=== PATIENT | female | born 1945 | race Caucasian/White ===

== ENCOUNTER 2017-08-04 08:10 | Outpatient (CLI) | payer MEDICARE ==
--- NOTE | 2017-08-04 09:33 | PRG ---
DATE OF SERVICE: 08/04/2017 HISTORY: Ms. Lexi Montiel is a very pleasant 71-year-old accompanied by her sister who presents to [facility] for evaluation of a nonhealing surgical wound of the back in the midline subsequent to spinal fusion T10-L3 on 02/26/2017. The patient has been receiving dressing changes of Promogran and Aquacel AG 3 times per week after cleansing and irrigation with the assistance of Home Health. The patient has no complaints today. She denies any fever or chills. The patient has received IV antibiotics and p.o. antibiotics under the direction of Dr. Faustino Patel of Infectious Diseases. PHYSICAL EXAMINATION: VITAL SIGNS: Temperature 98.0, pulse 92, respirations 18, blood pressure 168/82. BACK: A wound of the back in the midline is present which measures approximately 1.2 x 0.3 cm. Und ermining at the 2 o'clock position is present and is approximately 1.5-1.7 cm in length. Granulatio n tissue is present within the wound margins. No purulent drainage is associated with the wound. N o erythema of the skin surrounding the wound is present. No maceration of the skin of the periwound is noted. ASSESSMENT AND PLAN: 1. Nonhealing surgical wound of the back in the midline subsequent to spinal fusion T10-L3 on 02/26. Dressing changes of Promogran followed by Aquacel AG will be continued 3 times per week afte r cleansing and irrigation with the assistance of Home Health. I will see Ms. Montiel again in 3 week s if the wound is still present at this time. 2. Hypertension. 3. Degenerative joint disease. 4. Paroxysmal atrial fibrillation. 5. Carpal tunnel syndrome. 6. Coronary artery disease. 7. Glaucoma. 8. Gastroesophageal reflux disease. 9. Osteoarthritis. 10. Hypothyroidism 11. Rheumatoid arthritis.
[2017-08-04] MEDS ORDERED: Sodium Chloride 0.9% 15 ML NEB ONE (11:11)
== END 2017-08-04 08:11 | disposition home or self-care (01) ==
LOC: WCC 08:10
PROVIDERS: ATTEND Family Medicine
DX: T81.89XD Other complications of procedures, not elsewhere classified, subsequent encounter (principal); I10 Essential (primary) hypertension; M19.90 Unspecified osteoarthritis, unspecified site; I48.0 Paroxysmal atrial fibrillation; G56.00 Carpal tunnel syndrome, unspecified upper limb; I25.10 Atherosclerotic heart disease of native coronary artery without angina pectoris; H40.9 Unspecified glaucoma; K21.9 Gastro-esophageal reflux disease without esophagitis; E03.9 Hypothyroidism, unspecified; M06.9 Rheumatoid arthritis, unspecified
CPT/HCPCS: 97602; A4218

== ENCOUNTER 2017-08-25 08:03 | Outpatient (CLI) | payer MEDICARE ==
--- NOTE | 2017-08-25 09:54 | PRG ---
DATE OF SERVICE: 08/25/2017 HISTORY: Ms. Lexi Montiel is a very pleasant 71-year-old accompanied by her who [facility] of a nonhealing surgical wound of the back in the midline subsequent to spinal fusion T10-L3 on 02/26/2017. The patient has been receiving dressing changes of Promogra n and Aquacel AG 3 times per week after cleansing and irrigation with the assistance of Home Health. The patient has no complaints today. She denies any fever or chills. The patient has received IV antibiotics and p.o. antibiotics under the direction of Dr. Faustino Patel of Infectious Diseases. PHYSICAL EXAMINATION: VITAL SIGNS: Pulse 101, respirations 18, blood pressure 140/85. BACK: A wound of the back in the midline is present which measures approximately 0.7 x 0.2 cm. Und ermining at the 2-3 o'clock position is present and is approximately 1.3 cm in length. Granulation tissue is present within the wound margins. No purulent drainage is associated with the wound. No erythema of the skin surrounding the wound is present. No maceration of the skin of the periwound i s noted. ASSESSMENT AND PLAN: 1. Nonhealing surgical wound of the back in the midline subsequent to spinal fusion T10-L3 on 02/26. Dressing changes of Promogran followed by Aquacel AG will be continued 3 times per week afte r cleansing and irrigation with the assistance of Home Health. I will see Ms. Montiel again in 3 week s if her wound is still present at this time. 2. Hypertension. 3. Degenerative joint disease. 4. Paroxysmal atrial fibrillation. 5. Carpal tunnel syndrome. 6. Coronary artery disease. 7. Glaucoma. 8. Gastroesophageal reflux disease. 9. Osteoarthritis. 10. Hypothyroidism 11. Rheumatoid arthritis.
== END 2017-08-25 08:04 | disposition home or self-care (01) ==
LOC: WCC 08:03
PROVIDERS: ATTEND Family Medicine
DX: T81.89XD Other complications of procedures, not elsewhere classified, subsequent encounter (principal); I10 Essential (primary) hypertension; M19.90 Unspecified osteoarthritis, unspecified site; I48.0 Paroxysmal atrial fibrillation; G56.00 Carpal tunnel syndrome, unspecified upper limb; I25.10 Atherosclerotic heart disease of native coronary artery without angina pectoris; H40.9 Unspecified glaucoma; K21.9 Gastro-esophageal reflux disease without esophagitis; E03.9 Hypothyroidism, unspecified; M06.9 Rheumatoid arthritis, unspecified
CPT/HCPCS: 97602

== ENCOUNTER 2017-10-06 14:16 | Emergency (ER) | payer MEDICARE ==
[2017-10-06 15:05] LABS: #Basophils 0.1 thou/uL (0.0-0.2); #Lymphocytes 2.1 thou/uL (1.20-3.40); #Monocytes 1.3 thou/uL (0.11-0.59); #Neutrophils 11.1 thou/uL (1.40-6.50); %Basophils 0.5 % (0.0-1.0); %Eosinophils 0.3 % (0.0-10.0); %Lymphocytes 14.4 % (21.0-51.0); Hematocrit 39.4 % (36.0-47.0); Mean Platelet Volume 7.9 fL (7.4-10.4); Red Blood Cell (RBC) Count 4.66 mill/uL (4.20-5.40); White Blood Cell (WBC) Count 14.7 thou/uL (4.8-10.8)
[2017-10-06 15:26] LABS: ALT (SGPT) 21 U/L (8-55); AST (SGOT) 22 U/L (5-34); Alkaline Phosphatase 126 U/L (40-150); Anion Gap 13 mmol/L (10-20); BUN (Urea Nitrogen) 18 mg/dL (9.8-20.1); Bilirubin, Total 0.4 mg/dL (0.2-1.2); Calc. Creatinine Clearance 0 mL/min (70-130); Calcium 10.2 mg/dL (7.8-10.44); Carbon Dioxide 23 mmol/L (23-31); Chloride 102 mmol/L (98-107); Estimated GFR-MDRD 73; Globulin 3.4 g/dL (2.4-3.5); Protein, Total 7.1 g/dL (6.0-8.3)
--- NOTE | 2017-10-06 15:30 | RAD ---
CHEST ONE VIEW: Comparison: 04-14-17 History: Cough. FINDINGS: Portable upright chest re-demonstrates Laina rods, metallic spacer at the thoracolumbar junction and dorsal column stimulators. Slight elongation of the aorta. Normal cardiac silhouette. The pulmon tayla vessels and hilum are normal. Costophrenic angles are clear. No masses or consolidation. No pneum othorax or osseous abnormality. IMPRESSION: No acute cardiopulmonary process. POS: [facility]
[2017-10-06 15:46] LABS: Bilirubin Negative (Negative); Blood, Urine Negative (Negative); Glucose, Urine (Dipstick) Negative (Negative); Ketone, Urine Negative (Negative); Nitrite Negative (Negative); Protein, Urine (Dipstick) Negative (Neg-Trace); Urobilinogen 0.2 mg/dL (0.2-1.0)
[2017-10-06] MEDS ORDERED: Acetaminophen 500 MG TAB ONE (15:50)
== END 2017-10-06 18:55 | disposition home or self-care (01) ==
LOC: ERS 14:16
DX: J11.1 Influenza due to unidentified influenza virus with other respiratory manifestations (principal); I48.91 Unspecified atrial fibrillation; I10 Essential (primary) hypertension; M19.90 Unspecified osteoarthritis, unspecified site; E03.9 Hypothyroidism, unspecified; E78.5 Hyperlipidemia, unspecified; I25.119 Atherosclerotic heart disease of native coronary artery with unspecified angina pectoris
CPT/HCPCS: 36415; 51701; 71010; 80053; 81003; 85025; 87040; 93005; A4353

== ENCOUNTER 2018-02-19 20:25 | Emergency (ER) | payer MEDICARE ==
[2018-02-19 20:58] LABS: #Eosinphils 0.1 thou/uL (0.0-0.7); #Lymphocytes 2.1 thou/uL (1.20-3.40); #Neutrophils 3.7 thou/uL (1.40-6.50); %Basophils 0.3 % (0.0-1.0); %Eosinophils 1.3 % (0.0-10.0); %Lymphocytes 30.5 % (21.0-51.0); Mean Corpuscular HGB CONC 33.2 g/dL (32.0-36.0); Mean Corpuscular Hemoglobin 26.9 pg (27.0-31.0); Mean Corpuscular Volume 81.2 fl (81.0-99.0); Mean Platelet Volume 9.3 fL (7.4-10.4); Platelet Count 173 thou/uL (130-400); RBC Distribution Width 15.7 % (11.5-14.5); Red Blood Cell (RBC) Count 4.82 mill/uL (4.20-5.40); White Blood Cell (WBC) Count 6.9 thou/uL (4.8-10.8)
--- NOTE | 2018-02-19 21:01 | RAD ---
SINGLE VIEW CHEST: 02/19/18 COMPARISON: 10/06/17 HISTORY: Cough and weakness. FINDINGS: Single view of the chest shows a normal sized cardiomediastinal silhouette. There is no evidence of c onsolidation, mass, or pleural effusion. Rods are seen in the spine. Hardware seen in the right humer us. A spinal stimulation device is seen in the thoracic spine. IMPRESSION: No evidence of acute cardiopulmonary disease. POS: [facility]
[2018-02-19 21:19] LABS: ALT (SGPT) 33 U/L (8-55); AST (SGOT) 45 U/L (5-34); Albumin 3.9 g/dL (3.4-4.8); Alkaline Phosphatase 112 U/L (40-150); Anion Gap 15 mmol/L (10-20); BUN (Urea Nitrogen) 21 mg/dL (9.8-20.1); Bilirubin, Total 0.2 mg/dL (0.2-1.2); Calc. Creatinine Clearance 0 mL/min (70-130); Calcium 9.4 mg/dL (7.8-10.44); Carbon Dioxide 20 mmol/L (23-31); Chloride 103 mmol/L (98-107); Estimated GFR-MDRD 80; Glucose 111 mg/dL (83-110); Potassium 4.2 mmol/L (3.5-5.1); Protein, Total 6.9 g/dL (6.0-8.3); Sodium 134 mmol/L (136-145)
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
[2018-02-19 23:33] LABS: Bilirubin Negative (Negative); Blood, Urine Negative (Negative); Clarity CLOUDY (Clear); Glucose, Urine (Dipstick) Negative (Negative); Leukocyte Negative (Negative); Nitrite Negative (Negative); Protein, Urine (Dipstick) Negative (Neg-Trace); Specific Gravity, Urine 1.019 (1.002-1.036); Urobilinogen 0.2 mg/dL (0.2-1.0); pH, Urine 6.5 (5.0-9.0)
== END 2018-02-20 00:40 | disposition home or self-care (01) ==
LOC: ERS 20:25
DX: R05 Cough (principal); R53.1 Weakness; R79.89 Other specified abnormal findings of blood chemistry; I10 Essential (primary) hypertension; I25.10 Atherosclerotic heart disease of native coronary artery without angina pectoris; I25.2 Old myocardial infarction; I48.91 Unspecified atrial fibrillation; K21.9 Gastro-esophageal reflux disease without esophagitis; E03.9 Hypothyroidism, unspecified; E78.5 Hyperlipidemia, unspecified; Z79.899 Other long term (current) drug therapy
CPT/HCPCS: 36415; 51701; 70450; 71045; 80053; 81003; 85025; 93005; A4353

== ENCOUNTER 2019-04-13 07:03 | Day surgery (SDC) | payer MEDICARE ==
[2019-04-12 13:50] VITALS: BMI 24.8
--- NOTE | 2019-04-13 08:14 | RAD ---
Exam: 3 views cervical spine HISTORY: Ataxia. Leg weakness. Pain. FINDINGS: No prevertebral soft tissue swelling. Predental space is normal. Adequate visualization of the cervical spine from C1 through C7-T1 disc space. In the neutral position, no malalignment. No abnormal alignment upon flexion and extension. Moderate degenerative change at C3-C4 and C4-C5. Moder ate to severe degenerative change at C5-C6 and C6-C7. Cervical spine vertebral body height is maintained. No fracture. IMPRESSION: Degenerative changes line above. No abnormal motion upon flexion or extension.
--- NOTE | 2019-04-13 08:22 | RAD ---
Exam: 3 VIEWS LUMBAR SPINE: HISTORY: Pain. COMPARISON: 04/09/2017. FINDINGS: Redemonstration of extensive fusion hardware with transpedicular screws in the distal thoracic and up per lumbar spine. Multilevel disc prostheses, unchanged in position. In the neutral position, there is 4.8 mm of anterolisthesis of L3 upon L4 and 8.1 mm of anterolisthesis of L4 upon L5. Upon extensio n, there is 1.4 mm of anterolisthesis of L3 upon L4 and 4.1 mm of anterolisthesis of L4 upon L5. Upon flexion, there is 2.5 mm of anterolisthesis of L3 upon L4 and 5.3 mm of anterolisthesis of L4 up on L5. IMPRESSION: Spondylolisthesis as above. Fusion changes as above. Transcribed Date/Time: 04/13/2019 8:56 AM
--- NOTE | 2019-04-13 09:11 | RAD ---
Myelogram of cervical, thoracic, and lumbar spine CLINICAL HISTORY: Pain and radiculopathy PROCEDURE: Informed consent was obtained. [employer] imaging was performed. Patient was placed in a prone position and the skin of the low back was prepped and draped in a standard sterile fashion. Topical anesthesia was achieved with buffered 1% lidocaine. 22-gauge spinal needle was then advanced uneventf ully into the thecal sac from a posterior para midline approach at the rightL3-4level. 9 cc of radiopaque contrast was instilled under low pressure into the thecal sac, upon return of clear colorl ess CSF the needle hub. Imaging was stored for documentation. Needle was removed. Patient tolerated the procedure well, without complication evident. Patient was then transferred to CT to undergo subsequent CT myelogram imaging. Reference separate zohaib fall(s) for additional details. FINDINGS: Intraoperative imaging reveals a needle overlying the lumbar spinal canal, with subsequent instillation of radiopaque contrast within the thecal sac. Fluoroscopy data:0.5minutes, 50mcg/sq m IMPRESSION: Technically successful myelogram, as above.
--- NOTE | 2019-04-13 10:00 | CT ---
Exam: POST MYELOGRAM CERVICAL SPINE CT: HISTORY:Pain. Radiculopathy. COMPARISON: None Cervical spine CT is performed in the axial plane. Sagittal and coronal reformatted images are submit cydney for interpretation. FINDINGS: Cervical spine vertebral body height is maintained. No fracture. No spondylolisthesis. No spondylolys is. Lateral masses of C1 and C2 articulate appropriately. Intact odontoid process. Lung apices are unremarkable. Visualized mediastinum is unremarkable. C2-C3: No significant central canal stenosis or neural foraminal narrowing. C3-C4: Central disc osteophyte complex abuts the thecal sac. Ventral subarachnoid space is effaced. M ild ventral mass effect upon the cervical cord. Moderate central canal stenosis. Right neural foramen is patent. Moderate left foraminal narrowing due to uncovertebral and facet hypertrophy. C4-C5:Broad-based disc osteophyte complex abuts the thecal sac. Ventral subarachnoid space is maintai ryan. No significant mass effect upon the cervical cord. No significant central canal stenosis. Right neural foramen is patent. Mild to moderate left foraminal narrowing due to uncovertebral and fa cet hypertrophy. C5-C6: Broad-based disc osteophyte complex abuts the thecal sac. Ventral subarachnoid space is efface d. Mild flattening of the midline portion of the cord. Moderate central canal stenosis. Mild right and moderate left neural foraminal narrowing due to hypertrophic changes C6-C7:Broad-based disc osteophyte complex abuts the thecal sac. Subarachnoid space is maintained. Mil d central canal stenosis. Mild to moderate right and mild left foraminal narrowing due to bilateral uncovertebral hypertrophy. C7-T1: No significant central canal stenosis. Neural foramina are patent IMPRESSION: 1.No fracture. 2. Degenerative changes of the cervical spine as detailed above. No high-grade central canal stenosis . Moderate central canal stenosis at C4-C5 and C5-C6. 3. Moderate left foraminal narrowing at C5-C6. Transcribed Date/Time: 04/13/2019 10:07 AM
--- NOTE | 2019-04-13 10:10 | CT ---
Exam: POSTMYELOGRAM THORACIC SPINE CT: HISTORY: Leg weakness. Thoracic spine pain. COMPARISON: None. TECHNIQUE: Postmyelogram thoracic spine CT is performed in the axial plane. Sagittal and coronal refo rmatted images are submitted for interpretation. FINDINGS: Trachea and visualized central bronchi are unremarkable. Visualized lung parenchyma unremarkable. Med iastinum and solid organs that are visualized are also grossly unremarkable. No paraspinal mass, lymphadenopathy, or hematoma. Extension fusion hardware involving the posterior elements at T10, T11, T12, L1, and L2. Disc prosthe sis at T12-L1. Dorsal column stimulator with leads terminating at the superior aspect of T6. Thoracic spine vertebral body height is maintained. There is no fracture. Vacuum disc phenomenon with loss of disc space height, endplate osteophyte formation and sclerosis at T7-T8, T8-T9, T9-T10. Fusion of the T10-T11 disc space. The T11-T12 disc space is unremarkable. Prosthesis at the T12-L1 di sc space. T1-T2 and T2-T3: No significant central canal stenosis. T4: Mass effect and deformity of the ventral thecal sac and ventral cord secondary to disc material. Moderate central canal stenosis. T5-T6: Minimal left paracentral disc bulge. No significant central canal stenosis Limited evaluation of the T6-T7 and T7-T8 disc spaces due to beam attenuation artifact. There does ap pear to be at least mild central canal stenosis at T7-T8 secondary to disc material. T8-T9: Moderate central canal stenosis secondary to disc osteophyte complex as well as posterior ute [place] ent hypertrophy. Remainder the thoracic spine does not demonstrate any significant central canal stenosis. Laminectomy defect at the T11-T12 disc space. Moderate bilateral neural foraminal narrowing at T8-T9. Remaining neural foramina appear to be patent . IMPRESSION: 1. Thoracic fusion as above. No fracture. 2. Central canal stenosis and neural foraminal narrowing as described above. 3. Dorsal column stimulator as described above. Transcribed Date/Time: 04/13/2019 10:26 AM
--- NOTE | 2019-04-13 10:36 | CT ---
Exam: POSTMYELOGRAM LUMBAR SPINE CT: HISTORY: Leg weakness. Low back pain. Previous fusion. FINDINGS: Five lumbar type vertebral bodies. Lumbar spine vertebral body height is maintained. No fracture. Dif fuse bone demineralization. Tracks from previous bilateral posterior element screws at L4, L5 and S1. There are still bilateral transpedicular screws at L1 and L2. Disc prosthesis at T12-L1, L2-L3, L 3-L4, L4-L5 and L5-S1. No retroperitoneal mass, nephropathy and hematoma. Symmetric attenuation of psoas muscles. 7 mm hyper dense cyst in the lower pole of the left kidney. Bilaterally no obstructive uropathy. There is a somewhat canal and pelvic structures are unremarkable. Conus medullaris terminates at the lower aspect of L1. T12-L1: Disc prosthesis. Broad-based osteophyte complex with resultant moderate central canal stenosi s. Moderate bilateral neural foraminal narrowing. L1-L2: Severe loss of disc space height. Generalized disc bulge results in mild central canal stenosi s. Mild bilateral neural foraminal narrowing. L2-L3: Disc prosthesis. Generalized osteophyte ridge, ligament flavum thickening and facet hypertroph y result in mild to moderate central canal stenosis. Narrowing of the right subarticular zone with presumed mass effect and obscuration of the traversing right L3 and possibly L4 nerve root. Left suba rticular zone is unremarkable. Mild to moderate bilateral neural foraminal narrowing. L3-L4: Disc prosthesis. Generalized osteophyte ridge, ligament flavum thickening and facet hypertroph y result in moderate central canal stenosis. There is a right hemilaminectomy defect. Bilaterally, neural foramina are patent. L4-L5: Disc prosthesis. Broad-based osteophyte ridge, ligament flavum thickening and facet hypertroph y result in moderate central canal stenosis. Possible right hemilaminotomy defect. Moderate left foraminal narrowing predominantly due to posterior element hypertrophy as well as an osteophyte ridge . Left neural foramen is patent. L5-S1: No high-grade central canal stenosis or significant left neural foraminal narrowing. Moderate right foraminal narrowing. IMPRESSION: 1. Postsurgical changes as described above. 2. Significant central canal stenosis at L3-L4, L4-L5. 3. Neural foraminal narrowing as described above. Transcribed Date/Time: 04/13/2019 12:20 PM
== END 2019-04-13 09:50 | disposition home or self-care (01) ==
LOC: RAD 07:03 → EDSTATUS 10:00
PROVIDERS: ATTEND Surgery
DX: M54.12 Radiculopathy, cervical region (principal); M48.061 Spinal stenosis, lumbar region without neurogenic claudication; M48.04 Spinal stenosis, thoracic region; R27.0 Ataxia, unspecified; I10 Essential (primary) hypertension; I25.10 Atherosclerotic heart disease of native coronary artery without angina pectoris; J44.9 Chronic obstructive pulmonary disease, unspecified; D64.9 Anemia, unspecified; I48.91 Unspecified atrial fibrillation; F41.9 Anxiety disorder, unspecified; E03.9 Hypothyroidism, unspecified; K21.9 Gastro-esophageal reflux disease without esophagitis; E78.5 Hyperlipidemia, unspecified; Z88.0 Allergy status to penicillin; Z88.1 Allergy status to other antibiotic agents; Z95.5 Presence of coronary angioplasty implant and graft; Z98.1 Arthrodesis status
CPT/HCPCS: 62305; 72040; 72100; 72126; 72129; 72132

== ENCOUNTER 2019-09-07 16:37 | Observation (INO) | payer MEDICARE ==
[~2019-09-07 16:37] MED LIST: ISOVUE-370 76%-LOCM 1 ML ONE
[2019-09-07 17:14] LABS: #Basophils 0.1 thou/uL (0.0-0.2); #Eosinphils 0.2 thou/uL (0.0-0.7); #Lymphocytes 2.8 thou/uL (1.20-3.40); #Monocytes 1.3 thou/uL (0.11-0.59); #Neutrophils 6.8 thou/uL (1.40-6.50); %Basophils 0.7 % (0.0-1.0); %Eosinophils 1.5 % (0.0-10.0); %Monocytes 11.9 % (0.0-10.0); Hemoglobin 14.3 g/dL (12.0-16.0); Mean Corpuscular HGB CONC 33.8 g/dL (32.0-36.0); Mean Corpuscular Hemoglobin 30.3 pg (27.0-31.0); Mean Corpuscular Volume 89.7 fL (78.0-98.0); Mean Platelet Volume 7.8 fL (7.4-10.4); Platelet Count 231 thou/uL (130-400); RBC Distribution Width 12.1 % (11.5-14.5); White Blood Cell (WBC) Count 11.1 thou/uL (4.8-10.8)
--- NOTE | 2019-09-07 17:17 | RAD ---
Chest AP view INDICATION: Dyspnea, tachycardia and shortness of breath COMPARISON: July 25, 2018 [place] chest radiograph and rib series FINDINGS: Lungs:The lungs are clear Cardiac silhouette:The cardiomediastinal silhouette appears within normal limits. Pulmonary vasculature:Normal Pleural spaces:No pleural effusion or pneumothorax is demonstrated. Upper abdomen:No abnormality seen. Osseous structures: Thoracolumbar spinal fixation, dorsal column stimulator and right total shoulder replacement appears similar. Additional findings:None. IMPRESSION: No acute cardiopulmonary abnormality.
[2019-09-07 17:39] LABS: ALT (SGPT) 20 U/L (8-55); AST (SGOT) 20 U/L (5-34); Alkaline Phosphatase 72 U/L (40-110); Anion Gap 16 mmol/L (10-20); BUN (Urea Nitrogen) 16 mg/dL (9.8-20.1); Bilirubin, Total 0.4 mg/dL (0.2-1.2); CK (CPK) 130 U/L (29-168); Calc. Creatinine Clearance 0 mL/min (70-130); Calcium 9.4 mg/dL (7.8-10.44); Carbon Dioxide 22 mmol/L (23-31); Chloride 103 mmol/L (98-107); Estimated GFR-MDRD 66; Globulin 2.7 g/dL (2.4-3.5); Glucose 86 mg/dL (83-110); Lipase 38 U/L (8-78); Potassium 3.8 mmol/L (3.5-5.1); Protein, Total 6.7 g/dL (6.0-8.3); Sodium 137 mmol/L (136-145)
[2019-09-07] MEDS ORDERED: Acetaminophen 500 MG TAB ONE (17:47)
--- NOTE | 2019-09-07 18:20 | CT ---
CTA Angio Chest W WO Con 09/07/2019 5:48 PM Indication: Dyspnea and weakness Technique: Multiple CTA images were obtained of the thorax with IV contrast. 3-D rendering: MIP brandy nstructed images were created and reviewed. Comparison: Prior exam dated April 12, 2017 Findings: Pulmonary arteries: No central or segmental pulmonary embolus is evident. Heart and Aorta: There are severe vascular calcifications involving the coronary arteries. There is a bovine aortic arch configuration. Mild vascular calcification is seen involving the great vessels. Mediastinum:Normal appearing. No enlarged lymph nodes. Lungs:Scattered subsegmental volume loss is nonspecific. Pleural space: Clear. Upper Abdomen: No acute abnormality. Osseous Structures: Thoracolumbar spinal instrumentation. Healing right posterior 10th rib fracture. Dorsal column stimulator. Diffuse osteopenia. No acute fracture or subluxation demonstrated. Soft tissues:No abnormality. Other findings:None. Impression: No central or segmental pulmonary embolus. Healing right posterior 10th rib fracture.
[2019-09-07] MEDS ORDERED: Propranolol 10 MG TAB PO SCH (19:30)
[2019-09-07] MEDS ORDERED: Aspirin Chewable 81 MG TAB ONE (19:41)
[2019-09-07 21:37] LABS: Troponin I Less than 0.010 ng/mL (< 0.028)
[2019-09-07] MEDS ORDERED: Sodium Chloride 0.9% 1,000 ML IV SCH (21:42)
[2019-09-07] MEDS ORDERED: Ondansetron PF 4 MG/2 ML Vial IVP PRN ×3 (21:42→23:46)
[2019-09-07] MEDS ORDERED: Ondansetron ODT 4 MG TAB SL PRN (21:42)
[2019-09-07 22:15] VITALS: BMI 25.9
[2019-09-07] MEDS ORDERED: Diclofenac Sodium 50 MG DR TAB PO PRN (23:46)
[2019-09-07] MEDS ORDERED: Polyvinyl Alcohol 1.4%/Povidone 0.6% Opth Drops EA EYE PRN (23:46)
[2019-09-07] MEDS ORDERED: Ondansetron ODT 4 MG TAB PO PRN ×2 (23:46)
[2019-09-07] MEDS ORDERED: Docusate 100 MG CAP PO PRN (23:46)
[2019-09-07] MEDS ORDERED: Propranolol HCl 20 MG TAB PO SCH (23:59)
[2019-09-08] MEDS: Propranolol 10 MG TAB PO SCH ×3 (00:28→12:06)
[2019-09-08 01:17] LABS: Troponin I Less than 0.010 ng/mL (< 0.028)
[2019-09-08] MEDS: Acetaminophen 325 MG TAB PO PRN ×3 (01:31→14:17)
--- NOTE | 2019-09-08 02:46 | HP ---
PRIMARY CARE PHYSICIAN: Noemi Haas MD CHIEF COMPLAINT: "I just feel exhausted and could not function." HISTORY OF PRESENT ILLNESS: Ms. Montiel is a very pleasant 73-year-old female who has a history of hypertension, coronary artery disease, COPD, and hypothyroidism. She says that on Wednesday, she woke up feeling just exhausted. She says that she could hardly function and this started on Wednesday. She says that she kept feeling the same way throughout most of the day and then she thought to check her blood pressure and heart rate. She noted that her blood pressure was elevated at 160/95 and her heart rate was around 130. This went on through most of the day and into the following day and she says she called Dr. Guerrier to see what to do. He told her that if she continued feeling bad like this, then to come to the ER. She also notes that she was feeling shaky and jittery and she did not feel dizzy or lightheaded and she denied any chest pain or shortness of breath, but she just felt "exhausted and worn out." She also felt hot and sweaty and a bit jittery. When she did come to the ER, she was found to have a heart rate in the 120s to 130s, which was sinus tachycardia and her TSH was suppressed, free T4 is still pending, and she is being admitted for further evaluation. When asked if she has had any recent change in medications, she says that back in December, her insurance stopped paying for the levothyroxine that she normally takes and there was a new brand. And then more recently, her primary care physician noted that her thyroid function was elevated. She says that her voice was becoming more raspy and as a result, they checked her thyroid functions and noted that it was elevated. Her dose went from 0.2 down to 0.1, and she says that she had her thyroid function checked last week and it was still "high" but her primary care physician wanted to wait a few more weeks before making any additional changes. Other than taking some senior vitamins, she says that she did notice that her prednisone dose had been tapered down from 10 mg to 1, starting about a few months ago as well. REVIEW OF SYSTEMS: All systems were reviewed and are negative except for that mentioned in the history of present illness. PAST MEDICAL HISTORY: Significant for urinary retention, hypertension, coronary artery disease, COPD, gastroesophageal reflux disease, osteoarthritis, hypothyroidism, hyperlipidemia, coronary artery disease. PAST SURGICAL HISTORY: She has had coronary stents placed, bilateral tubal ligation. She had a cardiac ablation, she says for some type of tachycardia. She has had bilateral carpal tunnel release, laminectomy, surgery for left tennis elbow, appendectomy, tonsillectomy, fusion. ALLERGIES: TO CODEINE AND BIAXIN, BOTH CAUSE A RASH. FAMILY HISTORY: Significant for mother with breast cancer as well as her sister, but they had different types. Her dad had coronary artery disease as well as both brothers and father also had cancer. SOCIAL HISTORY: She is a nonsmoker. She only occasionally drinks on special occasions. She is , has 3 children and 3 grandchildren. CURRENT MEDICATIONS: Include, 1. Levothyroxine 100 mcg p.o. daily. 2. Protonix 40 mg daily. 3. Metoprolol 50 mg twice a day. 4. Lasix 40 mg daily. 5. Dulcolax 10 mg daily. 6. Tetrabenazine 12.5 mg t.i.d. 7. Crestor 40 mg daily. 8. Restasis twice a day. 9. Potassium chloride 10 mEq extended release daily. 10. Ditropan 5 mg twice a day. 11. Benicar 40 mg daily. 12. Arava 20 mg daily. 13. Atrovent inhaler q.i.d. 14. Plaquenil 200 mg daily. 15. Estradiol 0.1 mg at bedtime. 16. Cymbalta 60 mg daily. 17. Diclofenac 50 mg daily. 18. Vitamin B12 5000 mcg p.o. daily. 19. Vitamin D3 5000 units daily. 20. Symbicort 160/4.5 one puff daily. 21. Alphagan 0.2% one drop in each eye twice a day. 22. Lumigan eyedrops twice daily. 23. Tessalon Perles 100 mg twice daily. 24. Amlodipine 10 mg daily. 25. Tylenol 1000 mg q.4 hours as needed. PHYSICAL EXAMINATION: GENERAL: She is alert and oriented. She appears to be in no acute distress. She is well developed and well nourished. VITAL SIGNS: Blood pressure was 142/96, heart rate 99, respiratory rate is 16, temperature is 98.1. HEENT: Pupils are equal, round, and reactive to light. Extraocular muscles are intact. Sclerae are anicteric. Throat, no erythema, no exudates. NECK: No adenopathy, no bruits. LUNGS: Clear to auscultation. There is no wheezing, no rales, no rhonchi. CARDIOVASCULAR: She has a normal S1, S2. There is no S3 or S4. No murmurs, clicks, or rubs. ABDOMEN: Soft, it is nontender and nondistended. Positive for bowel sounds. No rebound. No guarding. No organomegaly. EXTREMITIES: There is no clubbing or cyanosis. No edema. No calf tenderness. No joint effusions. Although, she does have some synovial swelling in the hands and a surgical abnormality on the right foot in the large toe. SKIN AND INTEGUMENT: No skin changes. No rash. NEUROLOGIC: Nonfocal. She is mildly hyperreflexive. LABORATORY DATA: Sodium is 137, potassium 3.8, chloride is 103, CO2 is 22, BUN of 16, creatinine 0.85, glucose is 86, total bilirubin is 0.4. TSH is 0.0345. White blood cell count is 11.1, hemoglobin 14.3, hematocrit is 42.2, and platelet count is 231. She had a CT angiogram of the chest, which was negative for pulmonary embolism. ASSESSMENT: 1. This is a pleasant 73-year-old female, who presents to the emergency room with fatigue and tachycardia. She is likely over replaced with her thyroid hormone as her TSH is suppressed and her symptoms are consistent with hyperthyroidism. I suspect this could have occurred due to the new formulation of her thyroid medication as well as the tapering of the steroids. For now, we will hold her levothyroxine, continue propranolol low dose along with her metoprolol to help with the peripheral conversion of T3-T4. Hopefully, this will only need to be administered for a short period of time and re-evaluate her clinically in the a.m., and I suspect that she will need to go home on an even lower dose of levothyroxine, possibly something like 0.5 or 50 mcg daily. 2. Hypertension. We will continue her usual home medications as well as p.r.n. as well. 3. Chronic obstructive pulmonary disease. This is also clinically stable. Continue Symbicort as well as DuoNeb p.r.n. 4. Coronary artery disease. This also appears clinically stable. We will continue her home medications. Job ID: [id number]
[2019-09-08 05:12] LABS: #Basophils 0.1 thou/uL (0.0-0.2); #Eosinphils 0.4 thou/uL (0.0-0.7); #Lymphocytes 2.9 thou/uL (1.20-3.40); #Monocytes 1.2 thou/uL (0.11-0.59); #Neutrophils 3.6 thou/uL (1.40-6.50); %Basophils 1.4 % (0.0-1.0); %Eosinophils 4.4 % (0.0-10.0); %Lymphocytes 35.7 % (21.0-51.0); %Monocytes 14.2 % (0.0-10.0); %Neutrophils 44.3 % (42.0-75.0); Hemoglobin 13.4 g/dL (12.0-16.0); Mean Corpuscular HGB CONC 33.2 g/dL (32.0-36.0); Mean Corpuscular Hemoglobin 29.9 pg (27.0-31.0); Mean Platelet Volume 7.9 fL (7.4-10.4); Platelet Count 214 thou/uL (130-400); RBC Distribution Width 12.2 % (11.5-14.5); Red Blood Cell (RBC) Count 4.48 mill/uL (4.20-5.40); White Blood Cell (WBC) Count 8.2 thou/uL (4.8-10.8)
[2019-09-08 05:34] LABS: Anion Gap 12 mmol/L (10-20); BUN (Urea Nitrogen) 12 mg/dL (9.8-20.1); Calc. Creatinine Clearance 75 mL/min (70-130); Carbon Dioxide 23 mmol/L (23-31); Chloride 106 mmol/L (98-107); Estimated GFR-MDRD 84; Glucose 87 mg/dL (83-110); Potassium 3.8 mmol/L (3.5-5.1); Sodium 137 mmol/L (136-145)
[2019-09-08] MEDS ORDERED: Mometasone/Formoterol 120 PUFF INHALER INH SCH (07:00)
[2019-09-08] MEDS ORDERED: Losartan 25 MG TAB PO SCH (09:00)
[2019-09-08] MEDS ORDERED: Hydroxychloroquine Sulfate 200 MG TAB PO SCH (09:00)
[2019-09-08] MEDS ORDERED: Potassium Chloride 10 MEQ TAB PO SCH (09:00)
[2019-09-08] MEDS ORDERED: TETRABENAZINE 12.5 MG PO SCH (09:00)
[2019-09-08] MEDS ORDERED: Oxybutynin 5 MG TAB PO SCH (09:00)
[2019-09-08] MEDS ORDERED: Leflunomide 10 mg Tablet PO SCH (09:00)
[2019-09-08] MEDS ORDERED: DULoxetine 60 MG CAP PO SCH (09:00)
[2019-09-08] MEDS ORDERED: Brimonidine Tartrate 0.2% Ophth Soln 5 ml Bottle EA EYE SCH (09:00)
[2019-09-08] MEDS ORDERED: Cyanocobalamin (Vitamin B-12) 1,000 MCG TAB PO SCH (09:00)
[2019-09-08] MEDS ORDERED: Metoprolol Tartrate 25 MG TAB PO SCH (09:00)
[2019-09-08] MEDS ORDERED: Enoxaparin Sodium 40 MG/0.4 ML SYRINGE SC SCH (09:00)
[2019-09-08] MEDS ORDERED: Furosemide 40 MG TAB PO SCH (09:00)
[2019-09-08] MEDS ORDERED: Amlodipine 10 MG TAB PO SCH (09:00)
[2019-09-08] MEDS ORDERED: Rosuvastatin 20 MG TAB PO SCH (09:00)
[2019-09-08] MEDS ORDERED: Benzonatate 100 MG CAP PO SCH (09:00)
[2019-09-08] MEDS ORDERED: cycloSPORINE 0.05% Ophthalmic Droperette EA EYE SCH (09:00)
[2019-09-08 15:23] VITALS: BP 142/78; TEMP 97.8
[2019-09-08] MEDS ORDERED: Latanoprost 0.005% Ophth Soln 2.5 ml Bottle EA EYE SCH (21:00)
[2019-09-08] MEDS ORDERED: Estradiol 1 MG TAB PO SCH (21:00)
--- NOTE | 2019-09-11 11:01 | DIS ---
DATE OF ADMISSION: 09/07/2019 DATE OF DISCHARGE: 09/08/2019 DISCHARGE DIAGNOSES: Sinus tachycardia secondary to hyperthyroidism, chronic obstructive pulmonary disease, hypertension, coronary artery disease. CONSULTATIONS: None. PROCEDURES: None. BRIEF HPI: This is a 73-year-old female with a past medical history of hypothyroidism, COPD, hypertension, who presented to the emergency room with hypertension and tachycardia. The patient reported that she was feeling excessive amounts of fatigue and noticed that her blood pressure was 160/95 and her heart rate was 130. She did not feel dizzy, lightheaded, have chest pain, or shortness of breath. When she came to the ER, she was found to have a heart rate in the 120s to 130s. Her TSH was 0.0345 and her free T4 was 0.98. The patient states that her levothyroxine was recently decreased to 0.1 mcg by her PCP> Hyperthyroidism: On admission, the patient was started on propranolol 10 mg every 6 hours and she was resumed on her metoprolol 50 mg p.o. b.i.d. She had three sets of troponins that were negative. The patient was monitored overnight and her heart rate remained controlled and stayed in the 90s. The patient ambulated around her room and did not have any recurrence of hypertension or tachycardia. She was felt to be stable for discharge and was discharged on metoprolol 50 mg p.o. b.i.d., and her levothyroxine dose was decreased to 75 mcg. She was told to follow up with her PCP in 1 to 2 weeks and to have repeat thyroid function test done in four weeks. The patient had a CTA of her chest and a chest x-ray during her hospital course that were unremarkable. DISCHARGE PHYSICAL EXAMINATION: VITAL SIGNS: Temperature 97.6, heart rate 76, respiratory rate 20, O2 saturation 95% on room air, and blood pressure 115/66. GENERAL: Alert, awake, and oriented x3. CVS: Regular rate and rhythm with no murmurs, rubs, or gallops. LUNGS: Clear to auscultation bilaterally. ABDOMEN: Positive bowel sounds, soft, nontender, and nondistended. EXTREMITIES: No edema. PERTINENT LABORATORY DATA: TSH of 0.0345, free T4 of 0.98. Troponins negative x3. CBC and BMP on 09/08 were normal. PERTINENT IMAGING: Chest x-ray on 09/07: No acute disease. CTA thorax on 09/07: No evidence of PE. DISCHARGE CONDITION: Stable. ACTIVITY: As tolerated. DIET: Regular diet. DISCHARGE MEDICATIONS: 1. Levothyroxine was decreased from 100 mcg to 75 mcg. 2. Metoprolol 50 mg p.o. b.i.d. 3. Lasix 40 mg daily. 4. Acetaminophen 1000 mg p.o. q.4. 5. Amlodipine 10 daily. 6. Bisacodyl 10 p.o. daily p.r.n. 7. Brimonidine one drop in each eye b.i.d. 8. Symbicort one puff inhalation daily. 9. Vitamin D3, 5000 units p.o. daily. 10. Vitamin B12, 5000 mcg p.o. daily. 11. Diclofenac 50 mg p.o. daily. 12. Docusate 100 mg p.o. b.i.d. 13. Duloxetine 60 mg p.o. daily. 14. Estradiol 0.1 mg p.o. at bedtime. 15. Plaquenil 200 mg p.o. daily. 16. Atrovent 2 puffs inhalation q.i.d. 17. Leflunomide 20 mg p.o. daily. 18. Olmesartan 40 mg p.o. daily. 19. Oxybutynin 5 mg p.o. b.i.d. 20. Protonix 40 mg p.o. q.24. 21. Potassium 10 mEq p.o. daily. 22. Restasis one drop in each eye b.i.d. 23. Rosuvastatin 40 mg p.o. daily. 24. Tetrabenazine 12.5 mg p.o. t.i.d. ISSUES TO BE ADDRESSED AT FOLLOWUP: The patient should have repeat thyroid function tests in 4 weeks and follow up with her PCP in 1 week. Job ID: [id number] MTDD
== END 2019-09-08 17:39 | disposition home or self-care (01) ==
LOC: ERS 16:37 → 2SW 20:30
PROVIDERS: ADMIT Internal Medicine; ATTEND Internal Medicine
DX: E05.90 Thyrotoxicosis, unspecified without thyrotoxic crisis or storm (principal); J44.9 Chronic obstructive pulmonary disease, unspecified; I10 Essential (primary) hypertension; I25.10 Atherosclerotic heart disease of native coronary artery without angina pectoris; Z79.899 Other long term (current) drug therapy; Z88.0 Allergy status to penicillin; Z88.8 Allergy status to other drugs, medicaments and biological substances; Z88.5 Allergy status to narcotic agent; Z79.02 Long term (current) use of antithrombotics/antiplatelets
CPT/HCPCS: 36415; 71045; 71275; 80048; 80053; 82550; 83690; 83880; 84439; 84443; 84484; 85025; 85379; 93005; 96372; 99213; G0378; G0463; J1650; Q9966

== ENCOUNTER 2020-03-28 15:39 | Emergency (ER) | payer MEDICARE ==
--- NOTE | 2020-03-28 17:21 | CT ---
Exam: Head CT without contrast HISTORY: Trauma. Fall. Pain. COMPARISON: 02/19/2018 FINDINGS: Hemorrhage: No intraparenchymal hemorrhage or extra-axial hematoma. Brain parenchyma: Cortical poole-white matter differentiation is preserved. No mass effect or midline shift. Basilar cisterns are patent.Stable white matter hypodensities due to chronic small vessel ischemic change Ventricular system: Ventricles and sulci are patent and symmetric. Calvarium: No calvarial fractures. Small left parietal scalp hematoma, near the vertex. Sinuses and mastoid air cells: Adequate aeration. IMPRESSION: No discrete no posttraumatic sequelae
--- NOTE | 2020-03-28 17:24 | CT ---
Exam: CT cervical spine without contrast HISTORY: Trauma. Pain. COMPARISON: 04/13/2019 FINDINGS: No craniocervical dissociation. Appropriate alignment of the lateral masses of C1 and C2. Intact odon toid process Appropriate alignment of the facets. Soft tissue neck structures: No mass, lymphadenopathy or hematoma. No prevertebral soft tissue swelli ng. Upper mediastinum and lung apices: Bilateral apical pleural scarring. No acute abnormality. Central spinal canal: Stable multilevel degenerative changes of the cervical spine. Varying degrees o f central canal stenosis and neural foraminal narrowing. Vertebral bodies: Cervical spine vertebral body height is maintained. No fracture. IMPRESSION: No fracture.
--- NOTE | 2020-03-28 17:29 | CT ---
Exam: Facial bone CT without contrast HISTORY: Fall. Facial injuries. Comparison none FINDINGS: Visualized brain parenchyma does not demonstrate posttraumatic change Adequate aeration of the sinuses and mastoid air cells Intact calvarium Bilateral ocular lens implants are appropriately located. Both globes are intact. Retrobulbar fat is preserved. Symmetric attenuation of the optic nerves and ocular rectus muscles. Minimal left supraorbital and infraorbital soft tissue posttraumatic changes Osseous margins of the orbits are maintained. Osseous margins of the paranasal sinuses are maintained. No significant right sided Phoebe cell. Bila teral ostiomeatal complexes are patent. Leftward curvature of the nasal septum with associated bony spur. Mandible and maxilla are intact. Intact zygomatic arches. No nasal bone fracture Visualized aerodigestive tract is patent. No mucosal abnormality. Limited evaluation due to dental am algam artifact. Midline fatty raphae of the tongue appears to be preserved. Epiglottis is normal in caliber. Visualized salivary glands have appropriate attenuation. IMPRESSION: 1. Minimal posttraumatic changes and left periorbital soft tissues. 2. No fracture.
[2020-03-28] MEDS ORDERED: Ondansetron PF 4 MG/2 ML Vial ONE (17:55)
[2020-03-28] MEDS ORDERED: Morphine 4 MG/ML VIAL ONE (17:55)
[2020-03-28] MEDS ORDERED: Lidocaine 1% (PF) 30 ML VIAL ONE (17:56)
[2020-03-28] MEDS ORDERED: Adacel (T-DAP) 0.5 ML SYRINGE ONE (17:56)
[2020-03-28] MEDS ORDERED: Acetaminophen/Codeine 30-300mg Tablet ONE (18:24)
[2020-03-28] MEDS ORDERED: Bacitracin 1 PK ONE (19:12)
== END 2020-03-28 19:34 | disposition home or self-care (01) ==
LOC: ERS 15:39
DX: S02.5XXA Fracture of tooth (traumatic), initial encounter for closed fracture (principal); S01.512A Laceration without foreign body of oral cavity, initial encounter; S01.511A Laceration without foreign body of lip, initial encounter; M19.90 Unspecified osteoarthritis, unspecified site; I10 Essential (primary) hypertension; K21.9 Gastro-esophageal reflux disease without esophagitis; I25.119 Atherosclerotic heart disease of native coronary artery with unspecified angina pectoris; I25.2 Old myocardial infarction; M54.10 Radiculopathy, site unspecified; E03.9 Hypothyroidism, unspecified; E78.5 Hyperlipidemia, unspecified; E78.00 Pure hypercholesterolemia, unspecified; Z79.899 Other long term (current) drug therapy; W18.30XA Fall on same level, unspecified, initial encounter
CPT/HCPCS: 12013; 70450; 70486; 72125; 90471; 90715; 93005; 96374; 96375; J2001; J2270; J2405; L0120

== ENCOUNTER 2020-09-24 07:31 | Outpatient (CLI) | payer MEDICARE ==
[2020-09-24 18:13] LABS: #Basophils 0.2 10x3/uL (0.0-0.2); #Eosinphils 0.5 10x3/uL (0.0-0.5); #Monocytes 1.4 10x3/uL (0.0-1.1); #Neutrophils 4.2 10x3/uL (1.5-8.4); %Basophils 1.5 % (0.0-2.0); %Eosinophils 4.4 % (0.0-6.0); %Lymphocytes 38.8 % (18.0-47.0); %Monocytes 13.9 % (0.0-10.0); Hemoglobin 13.8 g/dL (12.0-16.0); Mean Corpuscular HGB CONC 32.5 G/DL (32.0-36.0); Mean Corpuscular Hemoglobin 29.6 PG (27.0-33.0); Mean Corpuscular Volume 90.8 fl (80.0-100.0); Mean Platelet Volume 11.1 fl (7.4-10.4); Platelet Count 243 10x3/uL (130-400); RBC Distribution Width 13.8 % (11.5-14.5); Red Blood Cell (RBC) Count 4.67 10x6/uL (3.90-5.20); White Blood Cell (WBC) Count 10.1 10x3/uL (4.5-11.0)
[2020-09-24 18:27] LABS: Bilirubin Neg (Negative); Blood, Urine Negative (Negative); Clarity Clear (Clear); Glucose, Urine (Dipstick) Normal (Negative); Ketone, Urine Negative (Negative); Leukocyte 25 (Negative); Nitrite Negative (Negative); Protein, Urine (Dipstick) Negative (Neg-Trace); Urobilinogen Normal mg/dL (Less than 2)
[2020-09-24 18:41] LABS: Bacteria/HPF Rare-Few HPF (None Seen); RBC/HPF None Seen HPF (0-3); WBC/HPF 0-3 HPF (0-3); Yeast-Budding Rare HPF (None Seen)
[2020-09-25 16:41] LABS: SARS-CoV-2 MS2 Positive; SARS-CoV-2 N Gene Negative; SARS-CoV-2 S Gene Negative; SARS-CoV-2 by NAA Not Detected (NotDetected); SARS-CoV-2 orf1ab Negative
== END 2020-09-24 07:32 | disposition home or self-care (01) ==
LOC: LABBT 07:31
PROVIDERS: ATTEND Orthopaedic Surgery Hand Surgery
DX: Z01.812 Encounter for preprocedural laboratory examination (principal); M93.931 Osteochondropathy, unspecified, right forearm; Z20.828 Contact with and (suspected) exposure to other viral communicable diseases
CPT/HCPCS: 81001; 85025; U0003; 87635

== ENCOUNTER 2020-09-24 10:50 | Outpatient (CLI) | payer MEDICARE ==
[2020-09-24] MEDS ORDERED: Iopamidol 370 76% 100 ML VIAL ONE (12:57)
--- NOTE | 2020-09-24 14:34 | CT ---
CT ABDOMEN AND PELVIS WITH AND WITHOUT IV CONTRAST: 09/24/20 Postcontrast images obtained with portal venous and delayed venous phases. INDICATIONS: Hematuria. FINDINGS: the lung bases are clear. The liver, spleen and pancreas appear unremarkable. There is a small to mod erate sized fixed sliding diaphragmatic hernia. Adrenal glands normal. Review of the urinary tract on noncontrast image shows no evidence of urinary tract calculus. No evid ence of hydronephrosis. There is a hyperdense mass lesion extending from the posterior left renal cortex measuring 1.0 cm as seen on the noncontrast study. This lesion shows heterogeneous enhancement on the postcontrast images and represents a complex lesion. Postcontrast images show other tiny low density foci which are subcentimeter in both kidneys consiste nt with tiny renal cysts. No other renal mass or enhancing lesion. Delayed sequence shows opacification of the collecting structures. Upper collecting structures, urete rs, and urinary bladder appear unremarkable. Small and large bowel loops unremarkable. the aorta normal caliber. Images through the pelvis show unremarkable uterus and adnexa. Osseous structures show degenerative s pine change. Numerous pedicle screws with King type rods are seen transfixing the thoracic and lumbar spine. Diverticulosis of the left colon and sigmoid is incidentally noted. Incidentally noted is a rounded radiodense object measuring 1.0 cm within a loop of small bowel in th e anterior mid abdomen. This is not causing obstructive change and apparently represents an ingested object of uncertain etiology. IMPRESSION: 1. There is a complex lesion in the posterior left renal cortex along the posterior surface joana uring 1.0 cm. this lesion is hyperdense on noncontrast study and shows heterogeneous enhancement on p ostcontrast images. Neoplasm is not excluded. Close follow-up is recommended. 2. There are numerous tiny subcentimeter low density foci in both kidneys consistent with tiny cysts which are too small to characterize 3. Small to moderate sized fixed diaphragmatic hernia. 4. Diverticulosis. 5. Radiopaque ingested object in the small bowel in the anterior mid abdomen. There is no eviden ce of obstruction. 6. Extensive postoperative and degenerative changes in the spine. POS: AGW
== END 2020-09-24 10:51 | disposition home or self-care (01) ==
LOC: BICCT 10:50
PROVIDERS: ATTEND Urology
DX: N39.46 Mixed incontinence (principal); N28.1 Cyst of kidney, acquired; R31.29 Other microscopic hematuria; K44.9 Diaphragmatic hernia without obstruction or gangrene; K57.30 Diverticulosis of large intestine without perforation or abscess without bleeding; M19.90 Unspecified osteoarthritis, unspecified site; N28.9 Disorder of kidney and ureter, unspecified; Z98.890 Other specified postprocedural states
CPT/HCPCS: 74178; 81001; 82565; 85025; U0003; 87635; Q9967

== ENCOUNTER → 2020-09-27 | Day surgery (SDC) | payer MEDICARE ==
[2020-09-26 14:51] VITALS: BMI 27.4
[~2020-09-27] MED LIST changes: +Bacitracin Zinc Ointment 30 gm TUBE ONE; +Betamet Acet/Betamet Na Ph 30 MG/5 ML VIAL ONE; +Bupivacaine HCl 0.5%/Epinephrine 1:200,000/PF 30 ml Vial ONE; +Bupivacaine PF 0.5% 30 ML VIAL ONE; +Clindamycin/D5W 600 mg/50 ml Premix Bag ONE; +EPINEPHrine 1 MG/ML AMP ONE; +Fentanyl 100 MCG/2 ML VIAL ONE; -ISOVUE-370 76%-LOCM 1 ML ONE; +Lidocaine 1% (PF) 30 ML VIAL ONE; +Lidocaine 1% PF 5 ML VIAL ONE; +Midazolam HCl 2 mg/2 ml Vial ONE; +Ondansetron PF 4 MG/2 ML Vial ONE; +PHENYLEPHRINE-NS 100 MCG/ML 10 ML SYRINGE ONE; +PROPOFOL 200 MG/20 ML VIAL ONE; +Sodium Chloride 0.9% 10 ML ONE
--- NOTE | 2020-09-28 08:03 | RAD ---
Right wrist 2 views intraoperative fluoroscopy HISTORY: Orthopedic surgery. FINDINGS: Intraoperative fluoroscopy was provided for orthopedic surgery as performed by Dr. Dunn . Spot fluoroscopic images show metallic spreaders overlying the wrist. Metallic wires overlie the wrist in various obliquities. Exact final result of fixation is not apparent. Fluoroscopy time 14 seconds.
--- NOTE | 2020-09-29 14:22 | OP ---
DATE OF PROCEDURE: 09/27/2020 PREOPERATIVE DIAGNOSES: 1. Synovitis, severe, proximal and distal row sparing the capitate and the radial articulation with the lunate. 2. Severe extensor digitorum communis, extensor pollicis longus, extensor carpi radialis brevis and longus extensor tenosynovectomy occupying the entire compartments. 3. Capitate well spared lunate erosion, severe at the radiocarpal joint, but without severe erosion at the radius aspect of the radiocarpal joint. POSTOPERATIVE DIAGNOSES: 1. Synovitis, severe, proximal and distal row sparing the capitate and the radial articulation with the lunate. 2. Severe extensor digitorum communis, extensor pollicis longus, extensor carpi radialis brevis and longus extensor tenosynovectomy occupying the entire compartments. 3. Capitate well-spared lunate erosion, severe at the radiocarpal joint, but without severe erosion at the radius aspect of the radiocarpal joint. PROCEDURES PERFORMED: 1. Proximal row carpectomy. 2. Radical extensor tenosynovectomy, extensor pollicis longus. 3. Radical extensor tenosynovectomy, extensor digitorum communis . 4. Radical extensor tenosynovectomy, extensor carpi radialis brevis. 5. Radical extensor tenosynovectomy, extensor carpi radialis longus. 6. Arthroscopic synovectomy, wrist joint. SPECIMENS REMOVED: Triquetrum lunate and scaphoid with extensor pollicis longus tenosynovium and wrist synovitis. TOURNIQUET TIME: 58 minutes. ESTIMATED BLOOD LOSS: 30 mL. INDICATIONS FOR PROCEDURE: The patient came into the operating room with a history of previous arthritis treated by Rheumatology, but which she said there was no further activity. This operation is indicated because she had marked wrist pain, had shown an early SLAC wrist with marked widening of scapholunate interval and marked chondritis here and did not feel she would be a candidate for limited fusion. DESCRIPTION OF PROCEDURE: After successful general endotracheal anesthesia, the limb was prepped and draped. The limb was placed in standard in-line traction for wrist arthroscopy. We identified the 3, 4, the 6U and 6R portals. With the arm in-line traction, we then insufflated the joint with 5 mL of 0.5% normal saline and then placed our arthroscope in the 3, 4 portal and began panoramic view. Here, we saw marked disorganization of the proximal carpal row indicative of advanced chondromalacia. There was a drive-through sign because of scapholunate advanced collapse and the capitate did not show any ligament erosions on the middle. Thus, we felt a proximal carpectomy might be affected. We removed the arthroscope. We brought the wrist out of traction and into the center of the table sterilely. We exsanguinated the limb and inflated tourniquet at 250 mm pressure. A zigzag incision made centered over the previous arthroscopic portal, which we used to incorporate in the procedure. This allowed direct visualization of the retinaculum, where the patient's retinaculum was bulging with synovitis involving the extensor digitorum communis , extensor pollicis longus, extensor carpi radialis brevis and longus. We performed a radical extensor tenosynovectomy of all the above-listed tendons within the compartments to include EPL, extensor digitorum communis to , extensor carpi radialis brevis to , extensor carpi radialis longus. Once this was done, specimens were sent to the lab to help identify what type of inflammatory process we are dealing with and the FPL was in a pre-eruptive stage, although not formally losing mass. It was beginning to lose base of such combinations. The patient then had slowly begin the ulna and triquetrum lifted out, the lunate, and the sigmoid without damage to the RSC. We had finished the wrist arthroscopy with synovectomy as well. The patient then had the excellent alignment of the lunate with minimal lunate erosion seen with the remainder of the upper extremity. We closed it. We released the tourniquet after we had done the removal of the proximal row along with sparing the RSC ligament. The patient had Celestone applied to the tendon sites because of marked swelling and edema, and we then closed the wound with a running 3-0 Monocryl followed by interrupted 4-0 nylon mattress pattern. The patient left the operating room. A short-arm splint applied. No evidence of anesthetic or operative complication. Job ID: [id number]
--- NOTE | 2020-10-02 08:31 | EKG ---
Test Reason : PREOP Blood Pressure : / mmHG Vent. Rate : 082 BPM Atrial Rate : 082 BPM P-R Int : 178 ms QRS Dur : 082 ms QT Int : 402 ms P-R-T Axes : 076 -08 045 degrees QTc Int : 469 ms Normal sinus rhythm Normal ECG No previous ECGs available Confirmed by RAYMOND NARVAEZ MD ([id number] on 10/02/2020 8:31:01 AM Referred By: KENNETH Confirmed By:RAYMOND NARVAEZ MD
== END ==
LOC: SDC 10:16
PROVIDERS: ATTEND Orthopaedic Surgery Hand Surgery
PROC: 0RBN4ZZ Excision of Right Wrist Joint, Percutaneous Endoscopic Approach (ICD-10-PCS; principal; 2020-09-27)
PROC: 0PTM0ZZ Resection of Right Carpal, Open Approach (ICD-10-PCS; 2020-09-27)
PROC: 3E0T3BZ Introduction of Anesthetic Agent into Peripheral Nerves and Plexi, Percutaneous Approach (ICD-10-PCS; 2020-09-27)
DX: M92.211 Osteochondrosis (juvenile) of carpal lunate [Kienbock], right hand (principal); M19.131 Post-traumatic osteoarthritis, right wrist; M06.841 Other specified rheumatoid arthritis, right hand; M24.541 Contracture, right hand; M65.88 Other synovitis and tenosynovitis, other site; G89.18 Other acute postprocedural pain; I25.10 Atherosclerotic heart disease of native coronary artery without angina pectoris; I10 Essential (primary) hypertension; I25.2 Old myocardial infarction; E05.90 Thyrotoxicosis, unspecified without thyrotoxic crisis or storm; J44.9 Chronic obstructive pulmonary disease, unspecified; K21.9 Gastro-esophageal reflux disease without esophagitis; F03.90 Unspecified dementia, unspecified severity, without behavioral disturbance, psychotic disturbance, mood disturbance, and anxiety; Z79.82 Long term (current) use of aspirin; Z79.899 Other long term (current) drug therapy; Z88.0 Allergy status to penicillin; Z88.1 Allergy status to other antibiotic agents; Z95.5 Presence of coronary angioplasty implant and graft
CPT/HCPCS: 76000; 88304; 88305; 88307; 88311; 93005; 93010; J0171; J0702; J2001; J2250; J2405; J2704; J3010; J3490; S0020

== ENCOUNTER 2020-12-30 12:32 | Outpatient (CLI) | payer MEDICARE ==
[~2020-12-30 12:32] MED LIST changes: -Bacitracin Zinc Ointment 30 gm TUBE ONE; -Betamet Acet/Betamet Na Ph 30 MG/5 ML VIAL ONE; -Bupivacaine HCl 0.5%/Epinephrine 1:200,000/PF 30 ml Vial ONE; -Bupivacaine PF 0.5% 30 ML VIAL ONE; -Clindamycin/D5W 600 mg/50 ml Premix Bag ONE; -EPINEPHrine 1 MG/ML AMP ONE; -Fentanyl 100 MCG/2 ML VIAL ONE; +Iopamidol 370 76% 100 ML VIAL ONE; -Lidocaine 1% (PF) 30 ML VIAL ONE; -Lidocaine 1% PF 5 ML VIAL ONE; -Midazolam HCl 2 mg/2 ml Vial ONE; -Ondansetron PF 4 MG/2 ML Vial ONE; -PHENYLEPHRINE-NS 100 MCG/ML 10 ML SYRINGE ONE; -PROPOFOL 200 MG/20 ML VIAL ONE; -Sodium Chloride 0.9% 10 ML ONE
--- NOTE | 2020-12-30 14:23 | CT ---
CT ABDOMEN WITH AND WITHOUT IV CONTRAST: HISTORY: Renal mass followup. COMPARISON: 09/24/2020. FINDINGS: The 1 cm hyperdense lesion arising from the posterior left renal cortex is stable and demonstrates at tenuation value of greater than 70 Hounsfield units (97 Hounsfield units) and no post contrast enhanc ement. This is consistent with a hemorrhagic or proteinaceous cyst. Small low-density lesions consi stent with cysts are again seen in the kidneys on both sides. No calculi are noted in the kidneys or visualized portions of the ureters. No hydroureteral nephrosis is seen on either side. There is no rmal contrast excretion into the pelvicalyceal systems and ureters bilaterally. The lung bases are clear. A moderate-sized hiatal hernia is again seen. The liver, spleen, pancreas , and adrenal glands are normal. No calcified gallstones are noted. No free air, free fluid, or lymphadenopathy is seen in the abdomen. There are vascular calcification s without evidence of aneurysmal dilatation of the abdominal aorta. There are postop changes of meta llic hardware in the spine. Colonic diverticulosis is again seen. IMPRESSION: Stable exam since 09/24/2020 including hemorrhagic/proteinaceous cyst in the left kidney. POS: OFF
== END 2020-12-30 12:33 | disposition home or self-care (01) ==
LOC: BICCT 12:32
PROVIDERS: ATTEND Urology
DX: N28.89 Other specified disorders of kidney and ureter (principal); N28.1 Cyst of kidney, acquired
CPT/HCPCS: 74170; 82565; Q9967

== ENCOUNTER 2021-02-05 09:34 | Outpatient (CLI) | payer MEDICARE | END 2021-02-05 09:35 | disposition home or self-care (01) | LOC: BICMAMMO 09:34 | PROVIDERS: ATTEND Family Medicine | DX: Z12.31 Encounter for screening mammogram for malignant neoplasm of breast (principal); N95.9 Unspecified menopausal and perimenopausal disorder; M85.89 Other specified disorders of bone density and structure, multiple sites | CPT/HCPCS: 77063; 77067; 77080 ==

== ENCOUNTER 2021-05-20 12:02 | Outpatient (CLI) | payer MEDICARE ==
[2021-05-20 13:22] LABS: Hemoglobin 12.4 g/dL (12.0-15.5); Mean Corpuscular HGB CONC 33.1 g/dL (32.0-36.0); Mean Corpuscular Hemoglobin 28.7 pg (27.0-33.0); Mean Corpuscular Volume 86.8 fl (81.6-98.3); Mean Platelet Volume 11.6 fl (7.4-10.4); Platelet Count 232 10x3/uL (150-450); RBC Distribution Width 14.6 % (11.5-14.5); Red Blood Cell (RBC) Count 4.32 10x6/uL (3.90-5.03); White Blood Cell (WBC) Count 8.6 10x3/uL (3.5-10.5)
[2021-05-20 14:14] LABS: Lymphocytes 25 % (21-51); MDiff Complete? YES; Neutrophil 59 % (42-75); Reactive Lymphocytes 1 % (0-10)
[2021-05-20 14:15] LABS: Eosinophils 3 % (0-10); Monocytes 12 % (0-10)
[2021-05-20 14:16] LABS: Platelet Morphology Comment Appears Adequate
[2021-05-20 15:38] LABS: Bilirubin Neg (Negative); Blood, Urine Negative (Negative); Clarity Slightly Cloudy (Clear); Glucose, Urine (Dipstick) Normal (Negative); Ketone, Urine Negative (Negative); Leukocyte 500 (Negative); Nitrite Negative (Negative); Protein, Urine (Dipstick) 15 mg/dl (Neg-Trace); Specific Gravity, Urine 1.015 (1.002-1.036); Urobilinogen Normal mg/dL (Less than 2)
[2021-05-20 16:57] LABS: RBC/HPF None Seen HPF (0-3)
[2021-05-20 16:58] LABS: Bacteria/HPF 4+ HPF (None Seen)
== END 2021-05-20 12:03 | disposition home or self-care (01) ==
LOC: LABBT 12:02
PROVIDERS: ATTEND Orthopaedic Surgery Hand Surgery
DX: Z01.812 Encounter for preprocedural laboratory examination (principal); M19.031 Primary osteoarthritis, right wrist
CPT/HCPCS: 81001; 85025

== ENCOUNTER 2021-05-23 05:57 | Day surgery (SDC) | payer MEDICARE ==
[2021-05-22 14:05] VITALS: BMI 27.4
[2021-05-23] MEDS ORDERED: Fentanyl 100 MCG/2 ML VIAL ONE ×2 (06:21→07:07)
[2021-05-23] MEDS ORDERED: Bupivacaine PF 0.5% 30 ML VIAL ONE (06:46)
[2021-05-23] MEDS ORDERED: Neomycin-Polymyxin 1 ML AMP ONE (06:46)
[2021-05-23] MEDS ORDERED: Bacitracin Zinc Ointment 30 gm TUBE ONE (06:46)
[2021-05-23] MEDS ORDERED: Vancomycin 1 GM/200 ML BAG ONE (06:58)
[2021-05-23] MEDS ORDERED: Midazolam HCl 2 mg/2 ml Vial ONE (07:07)
[2021-05-23] MEDS ORDERED: Lidocaine 1% (PF) 30 ML VIAL ONE (07:09)
[2021-05-23] MEDS ORDERED: Propofol 500 MG/50 ML VIAL ONE (07:09)
[2021-05-23] MEDS ORDERED: Bupivacaine HCl 0.5%/Epinephrine 1:200,000/PF 30 ml Vial ONE (07:35)
[2021-05-23] MEDS ORDERED: Lidocaine 1% PF 5 ML VIAL ONE (07:35)
[2021-05-23] MEDS ORDERED: Ondansetron PF 4 MG/2 ML Vial ONE (07:35)
[2021-05-23] MEDS ORDERED: PROPOFOL 200 MG/20 ML VIAL ONE (07:35)
[2021-05-23] MEDS ORDERED: PHENYLEPHRINE-NS 100 MCG/ML 10 ML SYRINGE ONE (07:35)
[2021-05-23] MEDS ORDERED: Dexamethasone 20 MG/5 ML VIAL ONE (07:35)
[2021-05-23] MEDS ORDERED: ePHEDrine Sulfate 50 MG/10 ML VIAL ONE (07:35)
[2021-05-23] MEDS ORDERED: Phenylephrine 10 MG/ML VIAL ONE (08:28)
[2021-05-23] MEDS ORDERED: Ketorolac Tromethamine 30 MG/ML VIAL ONE (10:48)
== END 2021-05-23 12:25 | disposition home or self-care (01) ==
LOC: SDC 05:57
PROVIDERS: ATTEND Orthopaedic Surgery Hand Surgery
PROC: 0RBN0ZZ Excision of Right Wrist Joint, Open Approach (ICD-10-PCS; principal; 2021-05-23)
PROC: 3E0T3BZ Introduction of Anesthetic Agent into Peripheral Nerves and Plexi, Percutaneous Approach (ICD-10-PCS; 2021-05-23)
PROC: 0RU Upper Joints, Supplement (ICD-10-PCS; 2021-05-23)
DX: M94.8X8 Other specified disorders of cartilage, other site (principal); M24.541 Contracture, right hand; M94.231 Chondromalacia, right wrist; M19.031 Primary osteoarthritis, right wrist; M92.211 Osteochondrosis (juvenile) of carpal lunate [Kienbock], right hand; M06.841 Other specified rheumatoid arthritis, right hand; I25.10 Atherosclerotic heart disease of native coronary artery without angina pectoris; I10 Essential (primary) hypertension; I25.2 Old myocardial infarction; J44.9 Chronic obstructive pulmonary disease, unspecified; K21.9 Gastro-esophageal reflux disease without esophagitis; F03.90 Unspecified dementia, unspecified severity, without behavioral disturbance, psychotic disturbance, mood disturbance, and anxiety; E03.9 Hypothyroidism, unspecified; Z79.82 Long term (current) use of aspirin; Z79.899 Other long term (current) drug therapy; Z88.0 Allergy status to penicillin; Z88.1 Allergy status to other antibiotic agents; Z95.5 Presence of coronary angioplasty implant and graft; Z98.890 Other specified postprocedural states
CPT/HCPCS: 17999; 25110; 64415; 73090; 76000; C1713 ×3; Q4125; J1100; J1885; J2001; J2250; J2370; J2405; J2704; J3010; J3370; S0020

== ENCOUNTER 2021-06-13 11:53 | Outpatient (CLI) | payer MEDICARE ==
[2021-06-13 13:07] LABS: Hemoglobin 11.7 g/dL (12.0-15.5); Mean Corpuscular HGB CONC 32.1 g/dL (32.0-36.0); Mean Corpuscular Hemoglobin 28.2 pg (27.0-33.0); Platelet Count 250 10x3/uL (150-450); RBC Distribution Width 15.3 % (11.5-14.5); Red Blood Cell (RBC) Count 4.15 10x6/uL (3.90-5.03); White Blood Cell (WBC) Count 12.4 10x3/uL (3.5-10.5)
[2021-06-13 13:23] LABS: Anion Gap 15 mmol/L (10-20); BUN (Urea Nitrogen) 18 mg/dL (9.8-20.1); Calc. Creatinine Clearance 0 mL/min (70-130); Calcium 10.4 mg/dL (7.8-10.44); Carbon Dioxide 23 mmol/L (23-31); Chloride 102 mmol/L (98-107); Glucose 95 mg/dL (83-110); Potassium 4.9 mmol/L (3.5-5.1); Sodium 135 mmol/L (136-145)
[2021-06-14 15:22] LABS: SARS-CoV-2 PCR by NAA Not Detected (NotDetected)
== END 2021-06-13 11:54 | disposition home or self-care (01) ==
LOC: LABBT 11:53
PROVIDERS: ATTEND Orthopaedic Surgery Hand Surgery
DX: Z01.812 Encounter for preprocedural laboratory examination (principal); T84.84XA Pain due to internal orthopedic prosthetic devices, implants and grafts, initial encounter; Z20.822 Contact with and (suspected) exposure to COVID-19
CPT/HCPCS: 80048; 85027; U0003; U0005

== ENCOUNTER 2021-06-17 05:52 | Day surgery (SDC) | payer MEDICARE ==
[2021-06-16 13:53] VITALS: BMI 27.4
[2021-06-17] MEDS ORDERED: Bacitracin Zinc Ointment 30 gm TUBE ONE (06:23)
[2021-06-17] MEDS ORDERED: Neomycin-Polymyxin 1 ML AMP ONE (06:23)
[2021-06-17] MEDS ORDERED: Lidocaine 1% (PF) 30 ML VIAL ONE (06:31)
[2021-06-17] MEDS ORDERED: Fentanyl 100 MCG/2 ML VIAL ONE ×2 (06:31→07:12)
[2021-06-17] MEDS ORDERED: Midazolam HCl 2 mg/2 ml Vial ONE (06:31)
[2021-06-17] MEDS ORDERED: Bupivacaine PF 0.5% 30 ML VIAL ONE (06:33)
[2021-06-17] MEDS ORDERED: Levofloxacin 500 mg/D5W 100 ml Premix Bag ONE (07:04)
[2021-06-17] MEDS ORDERED: Ropivacaine 2% HCl/PF (20 MG/10 ML VIAL) ONE (07:23)
[2021-06-17] MEDS ORDERED: PHENYLEPHRINE-NS 100 MCG/ML 10 ML SYRINGE ONE (07:23)
[2021-06-17] MEDS ORDERED: Ropivacaine 0.5% HCl/PF (150 MG/30 ML VIAL) ONE (07:23)
[2021-06-17] MEDS ORDERED: ePHEDrine 50 MG/ML VIAL ONE (07:23)
[2021-06-17] MEDS ORDERED: PROPOFOL 200 MG/20 ML VIAL ONE (07:23)
[2021-06-17] MEDS ORDERED: Lidocaine 1% PF 5 ML VIAL ONE (07:23)
== END 2021-06-17 09:58 | disposition home or self-care (01) ==
LOC: SDC 05:52
PROVIDERS: ATTEND Orthopaedic Surgery Hand Surgery
PROC: 0PP Upper Bones, Removal (ICD-10-PCS; principal; 2021-06-17)
DX: M86.8X8 Other osteomyelitis, other site (principal); T84.84XA Pain due to internal orthopedic prosthetic devices, implants and grafts, initial encounter; T84.69XA Infection and inflammatory reaction due to internal fixation device of other site, initial encounter; M06.841 Other specified rheumatoid arthritis, right hand; M24.541 Contracture, right hand; I25.10 Atherosclerotic heart disease of native coronary artery without angina pectoris; I10 Essential (primary) hypertension; I25.2 Old myocardial infarction; J44.9 Chronic obstructive pulmonary disease, unspecified; K21.9 Gastro-esophageal reflux disease without esophagitis; M19.90 Unspecified osteoarthritis, unspecified site; F03.90 Unspecified dementia, unspecified severity, without behavioral disturbance, psychotic disturbance, mood disturbance, and anxiety; Z79.2 Long term (current) use of antibiotics; Z79.82 Long term (current) use of aspirin; Z79.899 Other long term (current) drug therapy; Z88.0 Allergy status to penicillin; Z88.1 Allergy status to other antibiotic agents
CPT/HCPCS: 76000; 93005; 93010; J1956; J2001; J2250; J2704; J2795; J3010; J3490; S0020

== ENCOUNTER 2021-10-14 19:00 | Emergency (ER) | payer MEDICARE ==
[2021-10-14 20:57] LABS: #Basophils 0.1 thou/uL (0.0-0.2); #Eosinphils 0.4 thou/uL (0.0-0.7); #Lymphocytes 2.3 thou/uL (1.20-3.40); #Monocytes 1.2 thou/uL (0.11-0.59); %Basophils 0.8 % (0.0-1.0); %Eosinophils 3.2 % (0.0-10.0); %Lymphocytes 19.4 % (21.0-51.0); %Monocytes 10.1 % (0.0-10.0); %Neutrophils 66.5 % (42.0-75.0); Hemoglobin 13.7 g/dL (12.0-16.0); Mean Corpuscular HGB CONC 34.1 g/dL (32.0-36.0); Mean Corpuscular Hemoglobin 31.6 pg (27.0-31.0); Mean Corpuscular Volume 92.6 fL (78.0-98.0); Mean Platelet Volume 8.1 fL (7.4-10.4); Platelet Count 231 thou/uL (130-400); RBC Distribution Width 12.6 % (11.5-14.5); Red Blood Cell (RBC) Count 4.33 mill/uL (4.20-5.40)
[2021-10-14 21:11] LABS: ALT (SGPT) 21 U/L (8-55); AST (SGOT) 21 U/L (5-34); Albumin 4.3 g/dL (3.4-4.8); Alkaline Phosphatase 85 U/L (40-110); Anion Gap 12 mmol/L (10-20); BUN (Urea Nitrogen) 25 mg/dL (9.8-20.1); Bilirubin, Total 0.2 mg/dL (0.2-1.2); CK (CPK) 85 U/L (29-168); Calc. Creatinine Clearance 0 mL/min (70-130); Calcium 10.1 mg/dL (7.8-10.44); Carbon Dioxide 27 mmol/L (23-31); Chloride 104 mmol/L (98-107); Globulin 2.8 g/dL (2.4-3.5); Glucose 91 mg/dL (83-110); Potassium 4.2 mmol/L (3.5-5.1); Protein, Total 7.1 g/dL (5.8-8.1); Sodium 139 mmol/L (136-145)
[2021-10-14] MEDS ORDERED: Acetaminophen 500 MG TAB ONE (21:35)
[2021-10-14 22:55] LABS: Bilirubin Negative (Negative); Blood, Urine Negative (Negative); Clarity Clear (Clear); Glucose, Urine (Dipstick) Normal (Negative); Ketone, Urine Negative (Negative); Leukocyte Negative Leu/uL (Negative); Nitrite Negative (Negative); Protein, Urine (Dipstick) 10 mg/dL (Neg-Trace); Urobilinogen Normal mg/dL (Less than 2)
== END 2021-10-15 00:15 | disposition home or self-care (01) ==
LOC: ERS 19:00
DX: R55 Syncope and collapse (principal); I10 Essential (primary) hypertension; I25.10 Atherosclerotic heart disease of native coronary artery without angina pectoris; I25.2 Old myocardial infarction; K21.9 Gastro-esophageal reflux disease without esophagitis; E03.9 Hypothyroidism, unspecified; E78.5 Hyperlipidemia, unspecified; Z79.899 Other long term (current) drug therapy; Z79.82 Long term (current) use of aspirin
CPT/HCPCS: 36415; 51701; 71045; 80053; 81003; 82550; 84484; 85025; 93005

== ENCOUNTER 2022-06-15 05:24 | Observation (INO) | payer MEDICARE ==
[2022-06-15] MEDS ORDERED: Nitroglycerin 2% Ointment 1 INCH/1 GM Packet ONE (06:34)
[2022-06-15] MEDS ORDERED: Aspirin Chewable 81 MG TAB ONE ×2 (06:34→10:14)
[2022-06-15 06:54] LABS: #Basophils 0.1 thou/uL (0.0-0.2); #Eosinphils 0.4 thou/uL (0.0-0.7); #Lymphocytes 2.4 thou/uL (1.20-3.40); #Monocytes 1.1 thou/uL (0.11-0.59); #Neutrophils 6.5 thou/uL (1.40-6.50); %Basophils 0.9 % (0.0-1.0); %Eosinophils 3.6 % (0.0-10.0); %Monocytes 10.1 % (0.0-10.0); %Neutrophils 62.4 % (42.0-75.0); Hemoglobin 12.7 g/dL (12.0-16.0); Mean Corpuscular HGB CONC 33.1 g/dL (32.0-36.0); Mean Corpuscular Hemoglobin 31.5 pg (27.0-31.0); Mean Corpuscular Volume 95.3 fL (78.0-98.0); Mean Platelet Volume 7.8 fL (7.4-10.4); Platelet Count 208 thou/uL (130-400); RBC Distribution Width 13.5 % (11.5-14.5); Red Blood Cell (RBC) Count 4.02 mill/uL (4.20-5.40); White Blood Cell (WBC) Count 10.4 thou/uL (4.8-10.8)
[2022-06-15 07:15] LABS: ALT (SGPT) 28 U/L (8-55); AST (SGOT) 22 U/L (5-34); Alkaline Phosphatase 86 U/L (40-110); Anion Gap 14 mmol/L (10-20); BUN (Urea Nitrogen) 18 mg/dL (9.8-20.1); Bilirubin, Total 0.3 mg/dL (0.2-1.2); Calc. Creatinine Clearance 0 mL/min (70-130); Calcium 9.7 mg/dL (7.8-10.44); Carbon Dioxide 24 mmol/L (23-31); Chloride 102 mmol/L (98-107); Estimated GFR 90; Globulin 2.6 g/dL (2.4-3.5); Glucose 90 mg/dL (83-110); Potassium 4.3 mmol/L (3.5-5.1); Protein, Total 6.6 g/dL (5.8-8.1); Sodium 136 mmol/L (136-145)
[2022-06-15] MEDS ORDERED: Morphine 4 MG/ML VIAL ONE (07:21)
[2022-06-15] MEDS ORDERED: Ondansetron PF 4 MG/2 ML Vial ONE (07:21)
[2022-06-15] MEDS ORDERED: Amlodipine 10 MG TAB PO SCH (08:30)
[2022-06-15] MEDS ORDERED: Carvedilol 6.25 MG TAB PO SCH (08:30)
[2022-06-15] MEDS ORDERED: Losartan 25 MG TAB PO SCH (08:30)
[2022-06-15] MEDS ORDERED: Acetaminophen 325 MG TAB PO PRN ×2 (08:51→10:35)
[2022-06-15] MEDS ORDERED: Ondansetron PF 4 MG/2 ML Vial IVP PRN (08:51)
[2022-06-15] MEDS ORDERED: Ondansetron ODT 4 MG TAB PO PRN (08:51)
[2022-06-15] MEDS ORDERED: Aspirin 81 mg Enteric Coated Tablet PO SCH (09:15)
[2022-06-15] MEDS ORDERED: Aspirin 81 mg Enteric Coated Tablet ONE (10:15)
[2022-06-15] MEDS ORDERED: Nitroglycerin 0.4 MG TAB (25 Tab Bottle) SL PRN (10:28)
[2022-06-15] MEDS ORDERED: Docusate 100 MG CAP PO PRN (10:35)
[2022-06-15] MEDS ORDERED: Bisacodyl 5 MG TAB PO PRN (10:35)
[2022-06-15] MEDS ORDERED: Diclofenac Sodium 50 MG DR TAB PO PRN (10:35)
[2022-06-15 10:59] LABS: SARS-CoV-2 NAA Rapid Test Not Detected (NotDetected)
[2022-06-15 11:20] LABS: Troponin I Less than 0.010 ng/mL (< 0.028)
[2022-06-15] MEDS ORDERED: Acetaminophen/Codeine 30-300mg Tablet ONE ×2 (11:38→17:35)
[2022-06-15] MEDS: Acetaminophen/Codeine 30-300mg Tablet PO PRN ×3 (11:41→22:04)
[2022-06-15] MEDS ORDERED: Acetaminophen 500 MG TAB PO PRN (13:43)
[2022-06-15] MEDS: DULoxetine 60 MG CAP PO SCH (13:56)
[2022-06-15] MEDS: Brimonidine Tartrate 0.2% Ophth Soln 5 ml Bottle EA EYE SCH ×2 (13:57→22:05)
[2022-06-15 14:21] LABS: Troponin I Less than 0.010 ng/mL (< 0.028)
[2022-06-15] MEDS ORDERED: Iopamidol-370 76% 500 ML 1 ML ONE (15:48)
[2022-06-15] MEDS: Carvedilol 6.25 MG TAB PO SCH ×2 (16:36→22:03)
[2022-06-15 19:36] VITALS: BMI 24.5
[2022-06-15] MEDS ORDERED: cycloSPORINE 0.05% Ophthalmic Droperette EA EYE SCH (21:00)
[2022-06-15] MEDS ORDERED: Non-Formulary Item 1 EACH (Latanoprostene Bunod [Vyzulta] 5 ML Drops) OP SCH (21:00)
[2022-06-15] MEDS ORDERED: Latanoprostene Bunod [Vyzulta] 5 ML Drops EA EYE SCH (21:00)
[2022-06-15] MEDS: OXcarbazepine 300 MG TAB PO SCH (22:04)
[2022-06-15] MEDS: cycloSPORINE 0.05% Ophthalmic Droperette EA EYE SCH (22:05)
[2022-06-16 04:44] LABS: #Basophils 0.1 thou/uL (0.0-0.2); #Eosinphils 0.3 thou/uL (0.0-0.7); #Monocytes 1.4 thou/uL (0.11-0.59); #Neutrophils 6.7 thou/uL (1.40-6.50); %Eosinophils 2.5 % (0.0-10.0); %Lymphocytes 19.2 % (21.0-51.0); %Monocytes 13.1 % (0.0-10.0); %Neutrophils 64.2 % (42.0-75.0); Hemoglobin 13.8 g/dL (12.0-16.0); Mean Corpuscular HGB CONC 33.4 g/dL (32.0-36.0); Mean Corpuscular Hemoglobin 32.5 pg (27.0-31.0); Mean Corpuscular Volume 97.3 fL (78.0-98.0); Mean Platelet Volume 9.3 fL (7.4-10.4); Platelet Count 152 thou/uL (130-400); RBC Distribution Width 13.6 % (11.5-14.5); Red Blood Cell (RBC) Count 4.25 mill/uL (4.20-5.40); White Blood Cell (WBC) Count 10.5 thou/uL (4.8-10.8)
[2022-06-16 04:58] LABS: Anion Gap 15 mmol/L (10-20); BUN (Urea Nitrogen) 14 mg/dL (9.8-20.1); Calc. Creatinine Clearance 87 mL/min (70-130); Calcium 9.3 mg/dL (7.8-10.44); Carbon Dioxide 19 mmol/L (23-31); Chloride 103 mmol/L (98-107); Estimated GFR 92; Glucose 95 mg/dL (83-110); Potassium 4.1 mmol/L (3.5-5.1); Sodium 133 mmol/L (136-145)
[2022-06-16] MEDS ORDERED: Non-Formulary Item 1 EACH (Olmesartan Medoxomil [Benicar] 40 MG Tab) PO SCH (09:00)
[2022-06-16] MEDS ORDERED: Non-Formulary Item 1 EACH (Leflunomide [Arava] 20 MG Tab) PO SCH (09:00)
[2022-06-16] MEDS ORDERED: Non-Formulary Item 1 EACH (Rosuvastatin Calcium [Crestor] 40 MG Tablet) PO SCH (09:00)
[2022-06-16] MEDS: Losartan 25 MG TAB PO SCH (09:11)
[2022-06-16] MEDS: Brimonidine Tartrate 0.2% Ophth Soln 5 ml Bottle EA EYE SCH ×2 (09:11→21:17)
[2022-06-16] MEDS: Leflunomide 10 mg Tablet PO SCH (09:12)
[2022-06-16] MEDS: Rosuvastatin 20 MG TAB PO SCH (09:12)
[2022-06-16] MEDS: Carvedilol 6.25 MG TAB PO SCH (09:12)
[2022-06-16] MEDS: Levothyroxine Sodium 75 MCG TAB PO SCH (09:12)
[2022-06-16] MEDS: Estradiol 1 MG TAB PO SCH (09:13)
[2022-06-16] MEDS: OXcarbazepine 300 MG TAB PO SCH ×2 (09:13→21:17)
[2022-06-16] MEDS: Amlodipine 10 MG TAB PO SCH (09:13)
[2022-06-16] MEDS: DULoxetine 60 MG CAP PO SCH (09:13)
[2022-06-16] MEDS: Acetaminophen/Codeine 30-300mg Tablet PO PRN ×2 (11:30→21:17)
[2022-06-16] MEDS: cycloSPORINE 0.05% Ophthalmic Droperette EA EYE SCH ×2 (11:31→21:18)
[2022-06-16] MEDS: Carvedilol 25 MG TAB PO SCH (16:20)
[2022-06-17] MEDS: Acetaminophen/Codeine 30-300mg Tablet PO PRN ×2 (05:26→09:34)
[2022-06-17 08:51] LABS: Anion Gap 14 mmol/L (10-20); BUN (Urea Nitrogen) 20 mg/dL (9.8-20.1); Calc. Creatinine Clearance 73 mL/min (70-130); Calcium 9.8 mg/dL (7.8-10.44); Carbon Dioxide 24 mmol/L (23-31); Chloride 102 mmol/L (98-107); Estimated GFR 83; Glucose 92 mg/dL (83-110); Potassium 4.1 mmol/L (3.5-5.1); Sodium 136 mmol/L (136-145)
[2022-06-17] MEDS: Leflunomide 10 mg Tablet PO SCH (09:30)
[2022-06-17] MEDS: DULoxetine 60 MG CAP PO SCH (09:30)
[2022-06-17] MEDS: Levothyroxine Sodium 75 MCG TAB PO SCH (09:30)
[2022-06-17] MEDS: Losartan 25 MG TAB PO SCH (09:30)
[2022-06-17] MEDS: Amlodipine 10 MG TAB PO SCH (09:30)
[2022-06-17] MEDS: Brimonidine Tartrate 0.2% Ophth Soln 5 ml Bottle EA EYE SCH (09:31)
[2022-06-17] MEDS: Estradiol 1 MG TAB PO SCH (09:31)
[2022-06-17] MEDS: Rosuvastatin 20 MG TAB PO SCH (09:31)
[2022-06-17] MEDS: Carvedilol 25 MG TAB PO SCH (09:31)
[2022-06-17] MEDS: OXcarbazepine 300 MG TAB PO SCH (09:31)
[2022-06-17] MEDS: cycloSPORINE 0.05% Ophthalmic Droperette EA EYE SCH (12:04)
[2022-06-17 12:44] VITALS: BP 106/66; TEMP 97.5
== END 2022-06-17 15:17 | disposition home or self-care (01) ==
LOC: ERS 05:24 → ERHOLD 08:40 → 2NO 18:13
PROVIDERS: ADMIT Student in an Organized Health Care Education/Training Program; ATTEND Student in an Organized Health Care Education/Training Program
DX: I16.0 Hypertensive urgency (principal); R07.89 Other chest pain; I10 Essential (primary) hypertension; G89.29 Other chronic pain; M54.9 Dorsalgia, unspecified; I25.10 Atherosclerotic heart disease of native coronary artery without angina pectoris; E78.5 Hyperlipidemia, unspecified; E03.9 Hypothyroidism, unspecified; K21.9 Gastro-esophageal reflux disease without esophagitis; M06.9 Rheumatoid arthritis, unspecified; K44.9 Diaphragmatic hernia without obstruction or gangrene; R16.0 Hepatomegaly, not elsewhere classified; I25.2 Old myocardial infarction; M19.90 Unspecified osteoarthritis, unspecified site; G62.9 Polyneuropathy, unspecified; J44.9 Chronic obstructive pulmonary disease, unspecified; Z79.82 Long term (current) use of aspirin; Z79.890 Hormone replacement therapy; Z79.899 Other long term (current) drug therapy; Z88.0 Allergy status to penicillin; Z88.1 Allergy status to other antibiotic agents; Z96.82 Presence of neurostimulator; Z20.822 Contact with and (suspected) exposure to COVID-19
CPT/HCPCS: 0240U; 71045; 71275; 74174; 80048 ×2; 80053; 84484 ×2; 85025 ×2; 93005; 96374; 96375; 99285; 36415; G0378; J2270; J2405; Q9967

== ENCOUNTER 2022-11-03 11:28 | Outpatient (CLI) | payer MEDICARE | END 2022-11-03 11:29 | disposition home or self-care (01) | LOC: BICULT 11:28 | PROVIDERS: ATTEND Urology | DX: N28.1 Cyst of kidney, acquired (principal); N28.89 Other specified disorders of kidney and ureter | CPT/HCPCS: 76770 ==

== ENCOUNTER 2023-02-25 11:02 | Outpatient (CLI) | payer MEDICARE ==
[2023-02-25 12:02] LABS: #Basophils 0.1 10x3/uL (0.0-0.2); #Eosinphils 0.2 10x3/uL (0.0-0.5); #Neutrophils 4.9 10x3/uL (1.5-8.4); %Basophils 1.5 % (0.0-2.0); %Eosinophils 2.7 % (0.0-6.0); %Lymphocytes 24.4 % (18.0-47.0); %Monocytes 12.4 % (0.0-10.0); %Neutrophils 58.8 % (40.0-75.0); Hemoglobin 12.4 g/dL (12.0-15.5); Mean Corpuscular HGB CONC 32.8 g/dL (32.0-36.0); Mean Corpuscular Hemoglobin 30.2 pg (27.0-33.0); Mean Platelet Volume 10.9 fl (7.4-10.4); Platelet Count 224 10x3/uL (150-450); Red Blood Cell (RBC) Count 4.11 10x6/uL (3.90-5.03); White Blood Cell (WBC) Count 8.4 10x3/uL (3.5-10.5)
[2023-02-25 12:13] LABS: Anion Gap 14 mmol/L (10-20); BUN (Urea Nitrogen) 20 mg/dL (9.8-20.1); Calc. Creatinine Clearance 0 mL/min (70-130); Calcium 9.6 mg/dL (7.8-10.44); Carbon Dioxide 21 mmol/L (23-31); Chloride 107 mmol/L (98-107); Estimated GFR 82; Glucose 90 mg/dL (83-110); Potassium 4.5 mmol/L (3.5-5.1); Sodium 137 mmol/L (136-145)
== END 2023-02-25 11:03 | disposition home or self-care (01) ==
LOC: LABBT 11:02
PROVIDERS: ATTEND Orthopaedic Surgery
DX: M87.012 Idiopathic aseptic necrosis of left shoulder (principal)
CPT/HCPCS: 80048; 85025

== ENCOUNTER 2023-03-02 07:24 | Inpatient (IN) | payer MEDICARE ==
[2023-03-01 09:41] VITALS: BMI 26.9
[2023-03-02] MEDS ORDERED: Sodium Chloride 0.9% 100 ML ONE ×2 (08:08→08:49)
[2023-03-02] MEDS ORDERED: Tranexamic Acid 1,000 MG/10 ML VIAL ONE (08:08)
[2023-03-02] MEDS ORDERED: Vancomycin 1 GM/200 ML (FROZEN) BAG ONE (08:08)
[2023-03-02] MEDS ORDERED: fentaNYL 50 mcg/mL 1 mL Vial ONE (08:30)
[2023-03-02] MEDS ORDERED: Ropivacaine 0.5% HCl/PF (150 MG/30 ML VIAL) ONE (08:30)
[2023-03-02] MEDS ORDERED: Midazolam HCl 2 mg/2 ml Vial ONE (08:30)
[2023-03-02] MEDS ORDERED: Ropivacaine 0.2% HCl/PF 20 ML ONE (08:30)
[2023-03-02] MEDS ORDERED: HYDROcodone/Acetaminophen 7.5/325 mg Tablet PO PRN ×2 (08:46)
[2023-03-02] MEDS ORDERED: Ipratropium Bromide 0.06% Nasal Inhaler 15ml EA NARE PRN ×2 (08:48→09:05)
[2023-03-02] MEDS ORDERED: CEFAZOLIN 2 GM VIAL ONE (08:49)
[2023-03-02] MEDS ORDERED: fentaNYL PF 100 MCG/2 ML SYRINGE ONE (08:55)
[2023-03-02] MEDS ORDERED: Promethazine HCl 25 MG/ML VIAL ONE (08:56)
[2023-03-02] MEDS ORDERED: Non-Formulary Item 1 EACH (Leflunomide [Arava] 20 MG Tab) PO SCH (09:00)
[2023-03-02] MEDS ORDERED: Promethazine HCl 25 MG/ML VIAL IM PRN (09:00)
[2023-03-02] MEDS ORDERED: cycloSPORINE 0.05% Ophthalmic Droperette EA EYE SCH (09:00)
[2023-03-02] MEDS ORDERED: Non-Formulary Item 1 EACH (Rosuvastatin Calcium [Crestor] 40 MG Tablet) PO SCH (09:00)
[2023-03-02] MEDS ORDERED: Non-Formulary Item 1 EACH (Fluticasone/Umeclidin/Vilanter [Trelegy Ellipta 100-62.5-25] 1 IN SCH (09:00)
[2023-03-02] MEDS ORDERED: Ondansetron PF 4 MG/2 ML Vial IVP PRN (09:00)
[2023-03-02] MEDS ORDERED: HYDROcodone/Acetaminophen 5/325 mg Tablet PO PRN (09:00)
[2023-03-02] MEDS ORDERED: TROSPIUM CHLORIDE 60 MG PO SCH (09:00)
[2023-03-02] MEDS ORDERED: Non-Formulary Item 1 EACH (Cyanocobalamin (Vitamin B-12) [Vitamin B12] 5,000 MCG Tab.Rapd PO SCH (09:00)
[2023-03-02] MEDS ORDERED: Ropivacaine 0.2% 550 ML 550 ML NERVE BLCK SCH (09:00)
[2023-03-02] MEDS ORDERED: Zolpidem Tartrate 5 MG TAB PO PRN (09:00)
[2023-03-02] MEDS ORDERED: Glycopyrrolate 0.2 MG/ML 5 ML SYRINGE ONE ×2 (09:41)
[2023-03-02] MEDS ORDERED: ePHEDrine Sulfate 50 MG/10 ML VIAL ONE (09:41)
[2023-03-02] MEDS ORDERED: NEOSTIGMINE 3 MG/3 ML SYR 3 MG/3 ML SYRINGE ONE (09:41)
[2023-03-02] MEDS ORDERED: Dexamethasone 20 MG/5 ML VIAL ONE (09:41)
[2023-03-02] MEDS ORDERED: Ondansetron PF 4 MG/2 ML Vial ONE (09:41)
[2023-03-02] MEDS ORDERED: PROPOFOL 200 MG/20 ML VIAL ONE (09:41)
[2023-03-02] MEDS ORDERED: Lidocaine 1% PF 5 ML VIAL ONE (09:41)
[2023-03-02] MEDS ORDERED: Rocuronium Bromide 10 MG/ML (10ML VIAL) ONE (09:41)
[2023-03-02] MEDS ORDERED: PHENYLEPHRINE-NS 100 MCG/ML 10 ML SYRINGE ONE (09:41)
[2023-03-02] MEDS ORDERED: Ketorolac Tromethamine 30 MG/ML VIAL IVP SCH (12:00)
[2023-03-02] MEDS ORDERED: Ketorolac Tromethamine 30 MG/ML VIAL ONE ×2 (12:45)
[2023-03-02] MEDS: Ketorolac Tromethamine 30 MG/ML VIAL IVP SCH ×2 (12:47→16:50)
[2023-03-02] MEDS ORDERED: CEFAZOLIN 2 GM in Sodium Chloride 0.9% 100 ML IVPB SCH (14:00)
[2023-03-02] MEDS: Carvedilol 25 MG TAB PO SCH (16:49)
[2023-03-02] MEDS: CEFAZOLIN 2 GM in Sodium Chloride 0.9% 100 ML IVPB SCH (16:49)
[2023-03-02] MEDS: Amlodipine 10 MG TAB PO SCH (19:49)
[2023-03-02] MEDS: DULoxetine 60 MG CAP PO SCH (19:50)
[2023-03-02] MEDS: Folic Acid 1 MG TAB PO SCH (19:50)
[2023-03-02] MEDS: Hydroxychloroquine Sulfate 200 MG TAB PO SCH (19:50)
[2023-03-02] MEDS: Levothyroxine Sodium 75 MCG TAB PO SCH (19:50)
[2023-03-02] MEDS: Brimonidine Tartrate 0.2% Ophth Soln 5 ml Bottle EA EYE SCH ×3 (19:50→22:35)
[2023-03-02] MEDS: OXcarbazepine 300 MG TAB PO SCH ×2 (19:50→21:54)
[2023-03-02] MEDS: Estradiol 1 MG TAB PO SCH (19:50)
[2023-03-02] MEDS: Losartan 25 MG TAB PO SCH (19:50)
[2023-03-02] MEDS: Sodium Chloride 0.9% 1,000 ML IV SCH ×2 (19:51→22:14)
[2023-03-02] MEDS ORDERED: Vancomycin 1 GM in Premix Bag 1 BAG IVPB SCH (20:00)
[2023-03-02] MEDS ORDERED: VALBENAZINE TOSYLATE 60 MG PO SCH ×2 (21:00)
[2023-03-02] MEDS ORDERED: Non-Formulary Item 1 EACH (Latanoprostene Bunod [Vyzulta] 5 ML Drops) OP SCH (21:00)
[2023-03-02] MEDS: traMADol HCl 50 MG TAB PO PRN (21:51)
[2023-03-02] MEDS: Trospium 20 MG TAB PO SCH (21:53)
[2023-03-02] MEDS: Rosuvastatin 20 MG TAB PO SCH (21:54)
[2023-03-02] MEDS: cycloSPORINE 0.05% Ophthalmic Droperette EA EYE SCH (22:02)
[2023-03-02] MEDS: Latanoprost 0.005% Ophth Soln 2.5 ml Bottle EA EYE SCH (22:03)
[2023-03-03] MEDS: CEFAZOLIN 2 GM in Sodium Chloride 0.9% 100 ML IVPB SCH
[2023-03-03] MEDS: HYDROcodone/Acetaminophen 5/325 mg Tablet PO PRN ×4 (00:08→17:15)
[2023-03-03] MEDS: traMADol HCl 50 MG TAB PO PRN (02:03)
[2023-03-03] MEDS: fentaNYL 50 mcg/mL 1 mL Vial SLOW IVP PRN ×2 (03:25→20:54)
[2023-03-03] MEDS: Ketorolac Tromethamine 30 MG/ML VIAL IVP SCH ×5 (06:19→23:42)
[2023-03-03] MEDS: Estradiol 1 MG TAB PO SCH (10:35)
[2023-03-03] MEDS: Cyanocobalamin (Vitamin B-12) 1,000 MCG TAB PO SCH (10:35)
[2023-03-03] MEDS: Trospium 20 MG TAB PO SCH ×2 (10:35→20:54)
[2023-03-03] MEDS: Amlodipine 10 MG TAB PO SCH (10:35)
[2023-03-03] MEDS: Losartan 25 MG TAB PO SCH (10:37)
[2023-03-03] MEDS: Carvedilol 25 MG TAB PO SCH ×2 (10:37→17:16)
[2023-03-03] MEDS: Folic Acid 1 MG TAB PO SCH (10:37)
[2023-03-03] MEDS: Leflunomide 10 mg Tablet PO SCH (10:37)
[2023-03-03] MEDS: Levothyroxine Sodium 75 MCG TAB PO SCH (10:37)
[2023-03-03] MEDS: Hydroxychloroquine Sulfate 200 MG TAB PO SCH (10:37)
[2023-03-03] MEDS: DULoxetine 60 MG CAP PO SCH (10:37)
[2023-03-03] MEDS: Brimonidine Tartrate 0.2% Ophth Soln 5 ml Bottle EA EYE SCH ×2 (10:38→20:47)
[2023-03-03] MEDS: cycloSPORINE 0.05% Ophthalmic Droperette EA EYE SCH ×2 (10:38→21:20)
[2023-03-03] MEDS: OXcarbazepine 300 MG TAB PO SCH ×2 (11:39→20:53)
[2023-03-03] MEDS: Sodium Chloride 0.9% 1,000 ML IV SCH (15:52)
[2023-03-03] MEDS: Ipratropium/Albuterol 3 ML NEB NEB SCH ×2 (19:15→22:52)
[2023-03-03] MEDS: Mometasone 100 MCG/Formoterol 5 MCG 120 PUFF INHALER INH SCH (19:16)
[2023-03-03] MEDS: Rosuvastatin 20 MG TAB PO SCH (20:00)
[2023-03-03] MEDS: Latanoprost 0.005% Ophth Soln 2.5 ml Bottle EA EYE SCH (20:47)
[2023-03-04] MEDS: HYDROcodone/Acetaminophen 5/325 mg Tablet PO PRN ×2 (04:33→08:47)
[2023-03-04] MEDS: Ketorolac Tromethamine 30 MG/ML VIAL IVP SCH (05:30)
[2023-03-04] MEDS: Sodium Chloride 0.9% 1,000 ML IV SCH (07:16)
[2023-03-04] MEDS: Ipratropium/Albuterol 3 ML NEB NEB SCH (07:53)
[2023-03-04] MEDS: Mometasone 100 MCG/Formoterol 5 MCG 120 PUFF INHALER INH SCH (07:53)
[2023-03-04] MEDS: Amlodipine 10 MG TAB PO SCH (08:49)
[2023-03-04] MEDS: Losartan 25 MG TAB PO SCH (08:49)
[2023-03-04] MEDS: Leflunomide 10 mg Tablet PO SCH (08:49)
[2023-03-04] MEDS: DULoxetine 60 MG CAP PO SCH (08:49)
[2023-03-04] MEDS: Cyanocobalamin (Vitamin B-12) 1,000 MCG TAB PO SCH (08:49)
[2023-03-04] MEDS: Levothyroxine Sodium 75 MCG TAB PO SCH (08:49)
[2023-03-04] MEDS: Trospium 20 MG TAB PO SCH ×2 (08:49→20:15)
[2023-03-04] MEDS: OXcarbazepine 300 MG TAB PO SCH ×2 (08:49→20:16)
[2023-03-04] MEDS: Folic Acid 1 MG TAB PO SCH (08:49)
[2023-03-04] MEDS: cycloSPORINE 0.05% Ophthalmic Droperette EA EYE SCH ×2 (08:50→20:16)
[2023-03-04] MEDS: Docusate 100 MG CAP PO PRN ×2 (08:50→20:16)
[2023-03-04] MEDS: Brimonidine Tartrate 0.2% Ophth Soln 5 ml Bottle EA EYE SCH ×2 (08:50→20:16)
[2023-03-04] MEDS: Hydroxychloroquine Sulfate 200 MG TAB PO SCH (08:50)
[2023-03-04] MEDS: Estradiol 1 MG TAB PO SCH (08:50)
[2023-03-04] MEDS: Carvedilol 25 MG TAB PO SCH ×2 (08:50→18:30)
[2023-03-04] MEDS: fentaNYL 50 mcg/mL 1 mL Vial SLOW IVP PRN (13:36)
[2023-03-04] MEDS: Latanoprost 0.005% Ophth Soln 2.5 ml Bottle EA EYE SCH (20:16)
[2023-03-04] MEDS: Rosuvastatin 20 MG TAB PO SCH (20:16)
[2023-03-04] MEDS: traMADol HCl 50 MG TAB PO PRN (21:32)
[2023-03-05] MEDS: Sodium Chloride 0.9% 1,000 ML IV SCH ×2 (00:58→13:08)
[2023-03-05] MEDS: fentaNYL 50 mcg/mL 1 mL Vial SLOW IVP PRN (03:09)
[2023-03-05] MEDS: traMADol HCl 50 MG TAB PO PRN (05:11)
[2023-03-05] MEDS: Losartan 25 MG TAB PO SCH (08:27)
[2023-03-05] MEDS: Docusate 100 MG CAP PO PRN (08:27)
[2023-03-05] MEDS: Leflunomide 10 mg Tablet PO SCH (08:27)
[2023-03-05] MEDS: Trospium 20 MG TAB PO SCH ×2 (08:27→21:18)
[2023-03-05] MEDS: Levothyroxine Sodium 75 MCG TAB PO SCH (08:28)
[2023-03-05] MEDS: Estradiol 1 MG TAB PO SCH (08:28)
[2023-03-05] MEDS: DULoxetine 60 MG CAP PO SCH (08:28)
[2023-03-05] MEDS: Folic Acid 1 MG TAB PO SCH (08:28)
[2023-03-05] MEDS: Cyanocobalamin (Vitamin B-12) 1,000 MCG TAB PO SCH (08:28)
[2023-03-05] MEDS: Amlodipine 10 MG TAB PO SCH (08:28)
[2023-03-05] MEDS: Hydroxychloroquine Sulfate 200 MG TAB PO SCH (08:28)
[2023-03-05] MEDS: Carvedilol 25 MG TAB PO SCH ×2 (08:28→17:39)
[2023-03-05] MEDS: HYDROcodone/Acetaminophen 5/325 mg Tablet PO PRN (08:35)
[2023-03-05] MEDS: Brimonidine Tartrate 0.2% Ophth Soln 5 ml Bottle EA EYE SCH ×2 (08:38→21:14)
[2023-03-05] MEDS: cycloSPORINE 0.05% Ophthalmic Droperette EA EYE SCH ×2 (08:39→21:13)
[2023-03-05] MEDS: OXcarbazepine 300 MG TAB PO SCH ×2 (09:09→21:12)
[2023-03-05] MEDS ORDERED: Ketorolac Tromethamine 30 MG/ML VIAL IVP PRN (09:10)
[2023-03-05] MEDS: Acetaminophen/Codeine 30-300mg Tablet PO PRN (13:40)
[2023-03-05] MEDS: Rosuvastatin 20 MG TAB PO SCH (21:13)
[2023-03-05] MEDS: Latanoprost 0.005% Ophth Soln 2.5 ml Bottle EA EYE SCH (21:14)
[2023-03-06] MEDS: Sodium Chloride 0.9% 1,000 ML IV SCH ×2 (03:52→21:17)
[2023-03-06] MEDS: Acetaminophen/Codeine 30-300mg Tablet PO PRN ×2 (08:25→18:41)
[2023-03-06] MEDS: Cyanocobalamin (Vitamin B-12) 1,000 MCG TAB PO SCH (08:25)
[2023-03-06] MEDS: Levothyroxine Sodium 75 MCG TAB PO SCH (08:26)
[2023-03-06] MEDS: Hydroxychloroquine Sulfate 200 MG TAB PO SCH (08:26)
[2023-03-06] MEDS: Amlodipine 10 MG TAB PO SCH (08:26)
[2023-03-06] MEDS: Estradiol 1 MG TAB PO SCH (08:26)
[2023-03-06] MEDS: Trospium 20 MG TAB PO SCH ×2 (08:26→20:12)
[2023-03-06] MEDS: Leflunomide 10 mg Tablet PO SCH (08:26)
[2023-03-06] MEDS: Losartan 25 MG TAB PO SCH (08:26)
[2023-03-06] MEDS: Folic Acid 1 MG TAB PO SCH (08:26)
[2023-03-06] MEDS: OXcarbazepine 300 MG TAB PO SCH ×2 (08:27→21:22)
[2023-03-06] MEDS: DULoxetine 60 MG CAP PO SCH (08:27)
[2023-03-06] MEDS: Docusate 100 MG CAP PO PRN (08:27)
[2023-03-06] MEDS: Carvedilol 25 MG TAB PO SCH ×2 (08:27→17:13)
[2023-03-06] MEDS: Brimonidine Tartrate 0.2% Ophth Soln 5 ml Bottle EA EYE SCH ×2 (08:27→20:13)
[2023-03-06] MEDS: cycloSPORINE 0.05% Ophthalmic Droperette EA EYE SCH ×2 (08:28→20:13)
[2023-03-06] MEDS: Rosuvastatin 20 MG TAB PO SCH (20:12)
[2023-03-06] MEDS: Latanoprost 0.005% Ophth Soln 2.5 ml Bottle EA EYE SCH (20:13)
[2023-03-07] MEDS: Acetaminophen/Codeine 30-300mg Tablet PO PRN (06:12)
[2023-03-07] MEDS: OXcarbazepine 300 MG TAB PO SCH ×2 (08:18→22:03)
[2023-03-07] MEDS: Cyanocobalamin (Vitamin B-12) 1,000 MCG TAB PO SCH (08:19)
[2023-03-07] MEDS: Estradiol 1 MG TAB PO SCH (08:19)
[2023-03-07] MEDS: Folic Acid 1 MG TAB PO SCH (08:19)
[2023-03-07] MEDS: DULoxetine 60 MG CAP PO SCH (08:19)
[2023-03-07] MEDS: Losartan 25 MG TAB PO SCH (08:19)
[2023-03-07] MEDS: Trospium 20 MG TAB PO SCH ×2 (08:19→21:54)
[2023-03-07] MEDS: Hydroxychloroquine Sulfate 200 MG TAB PO SCH (08:19)
[2023-03-07] MEDS: Leflunomide 10 mg Tablet PO SCH (08:19)
[2023-03-07] MEDS: cycloSPORINE 0.05% Ophthalmic Droperette EA EYE SCH ×2 (08:20→21:54)
[2023-03-07] MEDS: Levothyroxine Sodium 75 MCG TAB PO SCH (08:20)
[2023-03-07] MEDS: Amlodipine 10 MG TAB PO SCH (08:20)
[2023-03-07] MEDS: Carvedilol 25 MG TAB PO SCH ×2 (08:20→16:48)
[2023-03-07] MEDS: Brimonidine Tartrate 0.2% Ophth Soln 5 ml Bottle EA EYE SCH ×2 (08:21→21:53)
[2023-03-07] MEDS: Sodium Chloride 0.9% 1,000 ML IV SCH (12:09)
[2023-03-07] MEDS ORDERED: Bisacodyl 5 MG TAB PO PRN (13:30)
[2023-03-07] MEDS ORDERED: Glycerin Adult Supp. (12 ct jar) PR PRN (13:30)
[2023-03-07] MEDS: Latanoprost 0.005% Ophth Soln 2.5 ml Bottle EA EYE SCH (21:53)
[2023-03-07] MEDS: Rosuvastatin 20 MG TAB PO SCH (21:54)
[2023-03-08] MEDS: Sodium Chloride 0.9% 1,000 ML IV SCH ×2 (04:50→16:28)
[2023-03-08] MEDS: Hydroxychloroquine Sulfate 200 MG TAB PO SCH (08:47)
[2023-03-08] MEDS: Leflunomide 10 mg Tablet PO SCH (08:48)
[2023-03-08] MEDS: Cyanocobalamin (Vitamin B-12) 1,000 MCG TAB PO SCH (08:49)
[2023-03-08] MEDS: Docusate 100 MG CAP PO PRN (08:50)
[2023-03-08] MEDS: Levothyroxine Sodium 75 MCG TAB PO SCH (08:50)
[2023-03-08] MEDS: DULoxetine 60 MG CAP PO SCH (08:50)
[2023-03-08] MEDS: Carvedilol 25 MG TAB PO SCH ×2 (08:50→17:45)
[2023-03-08] MEDS: Amlodipine 10 MG TAB PO SCH (08:51)
[2023-03-08] MEDS: Losartan 25 MG TAB PO SCH (08:51)
[2023-03-08] MEDS: Trospium 20 MG TAB PO SCH ×2 (08:51→20:06)
[2023-03-08] MEDS: Folic Acid 1 MG TAB PO SCH (08:51)
[2023-03-08] MEDS: Estradiol 1 MG TAB PO SCH (08:52)
[2023-03-08] MEDS: Brimonidine Tartrate 0.2% Ophth Soln 5 ml Bottle EA EYE SCH ×2 (08:52→20:06)
[2023-03-08] MEDS: cycloSPORINE 0.05% Ophthalmic Droperette EA EYE SCH ×2 (08:53→20:07)
[2023-03-08 09:16] LABS: #Basophils 0.1 thou/uL (0.0-0.2); #Eosinphils 0.2 thou/uL (0.0-0.7); #Lymphocytes 1.4 thou/uL (1.20-3.40); #Monocytes 2.1 thou/uL (0.11-0.59); #Neutrophils 12.6 thou/uL (1.40-6.50); %Basophils 0.5 % (0.0-1.0); %Eosinophils 1.4 % (0.0-10.0); %Lymphocytes 8.3 % (21.0-51.0); %Monocytes 12.6 % (0.0-10.0); %Neutrophils 77.1 % (42.0-75.0); Mean Corpuscular HGB CONC 34.7 g/dL (32.0-36.0); Mean Corpuscular Hemoglobin 32.5 pg (27.0-31.0); Mean Corpuscular Volume 93.6 fl (78.0-98.0); Mean Platelet Volume 7.5 fL (7.4-10.4); Platelet Count 214 10x3/uL (130-400); RBC Distribution Width 14.6 % (11.5-14.5); Red Blood Cell (RBC) Count 3.68 mill/uL (4.20-5.40); White Blood Cell (WBC) Count 16.4 10x3/uL (4.8-10.8)
[2023-03-08] MEDS: OXcarbazepine 300 MG TAB PO SCH ×2 (09:34→20:06)
[2023-03-08 09:35] LABS: Anion Gap 13 mmol/L (10-20); BUN (Urea Nitrogen) 11 mg/dL (9.8-20.1); Calc. Creatinine Clearance 92 mL/min (70-130); Calcium 9.4 mg/dL (7.8-10.44); Carbon Dioxide 18 mmol/L (23-31); Chloride 101 mmol/L (98-107); Estimated GFR 95; Glucose 121 mg/dL (83-110); Potassium 4.1 mmol/L (3.5-5.1); Sodium 128 mmol/L (136-145)
[2023-03-08 15:29] LABS: Bacteria/HPF 3+ HPF (None Seen); Bilirubin Negative (Negative); Blood, Urine Negative (Negative); Clarity Clear (Clear); Glucose, Urine (Dipstick) Normal (Negative); Ketone, Urine Negative (Negative); Leukocyte Negative Leu/uL (Negative); Nitrite Negative (Negative); Protein, Urine (Dipstick) Negative (Neg-Trace); RBC/HPF 0-3 HPF (0-3); Squamous Epithelial None Seen HPF (0-3); Urobilinogen Normal mg/dL (Less than 2); Yeast-Budding 1+ HPF (None Seen); pH, Urine 6.5 (5.0-9.0)
[2023-03-08 15:37] LABS: WBC/HPF 0-3 HPF (0-3)
[2023-03-08] MEDS ORDERED: Electrolyte Replacement Protocol 1 EACH FS SCH (16:15)
[2023-03-08] MEDS ORDERED: Electrolyte Replacement Protocol FS PRN (16:30)
[2023-03-08 16:55] LABS: Troponin I 0.011 ng/mL (< 0.028)
[2023-03-08 17:04] LABS: Anion Gap 11 mmol/L (10-20); BUN (Urea Nitrogen) 12 mg/dL (9.8-20.1); Calc. Creatinine Clearance 77 mL/min (70-130); Calcium 9.7 mg/dL (7.8-10.44); Carbon Dioxide 23 mmol/L (23-31); Chloride 101 mmol/L (98-107); Estimated GFR 91; Glucose 115 mg/dL (83-110); Phosphorus 3.5 mg/dL (2.3-4.7); Potassium 4.4 mmol/L (3.5-5.1); Sodium 131 mmol/L (136-145)
[2023-03-08] MEDS ORDERED: Sodium Chloride 0.9% 1,000 ML IV SCH (19:30)
[2023-03-08] MEDS: Acetaminophen/Codeine 30-300mg Tablet PO PRN (20:05)
[2023-03-08] MEDS: Latanoprost 0.005% Ophth Soln 2.5 ml Bottle EA EYE SCH (20:06)
[2023-03-09 06:37] LABS: Anion Gap 12 mmol/L (10-20); BUN (Urea Nitrogen) 14 mg/dL (9.8-20.1); Calc. Creatinine Clearance 90 mL/min (70-130); Calcium 9.6 mg/dL (7.8-10.44); Carbon Dioxide 22 mmol/L (23-31); Chloride 105 mmol/L (98-107); Estimated GFR 94; Glucose 100 mg/dL (83-110); Magnesium 1.8 mg/dL (1.6-2.6); Potassium 4.3 mmol/L (3.5-5.1); Sodium 135 mmol/L (136-145)
[2023-03-09 06:41] LABS: Hemoglobin 10.6 g/dL (12.0-16.0); Mean Corpuscular HGB CONC 34.2 g/dL (32.0-36.0); Mean Corpuscular Volume 93.6 fl (78.0-98.0); Mean Platelet Volume 7.4 fL (7.4-10.4); Platelet Count 228 10x3/uL (130-400); RBC Distribution Width 14.9 % (11.5-14.5); Red Blood Cell (RBC) Count 3.31 mill/uL (4.20-5.40); White Blood Cell (WBC) Count 10.9 10x3/uL (4.8-10.8)
[2023-03-09 07:04] LABS: Band 4 % (5-11); Eosinophils 3 % (0-10); Lymphocytes 18 % (21-51); MDiff Complete? YES; Monocytes 15 % (0-10); Neutrophil 60 % (42-75); Platelet Morphology Comment Appears Adequate; Polychromasia SLIGHT = 2-3 cells (100X) (0-2/hpf)
[2023-03-09] MEDS ORDERED: Magnesium 2 GM/50 ML(in water) 2 GM in Premix Bag 1 BAG IVPB SCH (08:00)
[2023-03-09] MEDS: DULoxetine 60 MG CAP PO SCH (09:08)
[2023-03-09] MEDS: Cyanocobalamin (Vitamin B-12) 1,000 MCG TAB PO SCH (09:08)
[2023-03-09] MEDS: Trospium 20 MG TAB PO SCH ×2 (09:08→22:30)
[2023-03-09] MEDS: Hydroxychloroquine Sulfate 200 MG TAB PO SCH (09:08)
[2023-03-09] MEDS: Estradiol 1 MG TAB PO SCH (09:08)
[2023-03-09] MEDS: Losartan 25 MG TAB PO SCH (09:08)
[2023-03-09] MEDS: Carvedilol 25 MG TAB PO SCH ×2 (09:08→18:40)
[2023-03-09] MEDS: OXcarbazepine 300 MG TAB PO SCH ×2 (09:08→22:28)
[2023-03-09] MEDS: Folic Acid 1 MG TAB PO SCH (09:08)
[2023-03-09] MEDS: Leflunomide 10 mg Tablet PO SCH (09:08)
[2023-03-09] MEDS: Brimonidine Tartrate 0.2% Ophth Soln 5 ml Bottle EA EYE SCH ×2 (09:09→22:29)
[2023-03-09] MEDS: Amlodipine 10 MG TAB PO SCH (09:09)
[2023-03-09] MEDS: cycloSPORINE 0.05% Ophthalmic Droperette EA EYE SCH ×2 (09:09→22:30)
[2023-03-09] MEDS: Levothyroxine Sodium 75 MCG TAB PO SCH (09:09)
[2023-03-09] MEDS: Acetaminophen/Codeine 30-300mg Tablet PO PRN ×3 (11:51→22:29)
[2023-03-09] MEDS ORDERED: cefTRIAXone\\ROCEPHIN 1 GM in Sodium Chloride 0.9% 100 ML IVPB SCH (14:00)
[2023-03-09] MEDS: Latanoprost 0.005% Ophth Soln 2.5 ml Bottle EA EYE SCH (22:29)
[2023-03-10] MEDS: Losartan 25 MG TAB PO SCH (08:40)
[2023-03-10] MEDS: Hydroxychloroquine Sulfate 200 MG TAB PO SCH (08:40)
[2023-03-10] MEDS: Trospium 20 MG TAB PO SCH (08:40)
[2023-03-10] MEDS: DULoxetine 60 MG CAP PO SCH (08:41)
[2023-03-10] MEDS: Amlodipine 10 MG TAB PO SCH (08:41)
[2023-03-10] MEDS: Estradiol 1 MG TAB PO SCH (08:41)
[2023-03-10] MEDS: Leflunomide 10 mg Tablet PO SCH (08:41)
[2023-03-10] MEDS: Levothyroxine Sodium 75 MCG TAB PO SCH (08:41)
[2023-03-10] MEDS: OXcarbazepine 300 MG TAB PO SCH (08:41)
[2023-03-10] MEDS: Cyanocobalamin (Vitamin B-12) 1,000 MCG TAB PO SCH (08:41)
[2023-03-10] MEDS: Folic Acid 1 MG TAB PO SCH (08:41)
[2023-03-10] MEDS: Carvedilol 25 MG TAB PO SCH (08:42)
[2023-03-10] MEDS: Brimonidine Tartrate 0.2% Ophth Soln 5 ml Bottle EA EYE SCH (08:42)
[2023-03-10] MEDS: cycloSPORINE 0.05% Ophthalmic Droperette EA EYE SCH (08:43)
[2023-03-10] MEDS ORDERED: Cefdinir 300 MG CAP PO SCH (09:00)
[2023-03-10 12:38] VITALS: BP 122/68; TEMP 97.5
== END 2023-03-10 16:50 | DRG 483 ==
LOC: SDC 07:24 → SJJU 16:17 → OBSVTOIN 03-04 07:27
PROVIDERS: ADMIT Orthopaedic Surgery; ATTEND Orthopaedic Surgery
PROC: 0RRK0JZ Replacement of Left Shoulder Joint with Synthetic Substitute, Open Approach (ICD-10-PCS; principal; 2023-03-02)
DX: M19.012 Primary osteoarthritis, left shoulder (principal); M87.812 Other osteonecrosis, left shoulder; I50.22 Chronic systolic (congestive) heart failure; N39.0 Urinary tract infection, site not specified; I11.0 Hypertensive heart disease with heart failure; E78.5 Hyperlipidemia, unspecified; M06.9 Rheumatoid arthritis, unspecified; E03.9 Hypothyroidism, unspecified; J44.9 Chronic obstructive pulmonary disease, unspecified; I25.10 Atherosclerotic heart disease of native coronary artery without angina pectoris; K21.9 Gastro-esophageal reflux disease without esophagitis; H40.9 Unspecified glaucoma; G89.29 Other chronic pain; G24.01 Drug induced subacute dyskinesia; M17.12 Unilateral primary osteoarthritis, left knee; F41.9 Anxiety disorder, unspecified; E83.42 Hypomagnesemia; Z88.1 Allergy status to other antibiotic agents; Z88.0 Allergy status to penicillin; Z90.89 Acquired absence of other organs; Z98.51 Tubal ligation status; Z90.49 Acquired absence of other specified parts of digestive tract; Z98.890 Other specified postprocedural states; Z80.9 Family history of malignant neoplasm, unspecified
CPT/HCPCS: 36415; 36416; 71045; 80048; 81001; 83735; 83930; 84100; 84484; 85025; 86140; 87040; 87077; 87086; 87186; 94640; 96374; 96375; 96376; A4306; C1713; C1776; C1889; G0378; J0696; J1100; J1885; J2250; J2405; J2550; J2704; J2795; J3010; J3370-JW; J3475; J3490; J7050; J7620